=== PATIENT | male | born 2000 | race Caucasian/White ===

== ENCOUNTER 2021-11-01 14:04 | Inpatient (IN) | payer MEDICAID, OTHER ==
[~2021-11-01] VITALS: Ht 160 cm; Wt 82.2 kg
[2021-11-01] MEDS ORDERED: IBUP-1506 PO (14:06)
[2021-11-01 15:30] LABS: BASOPHILS % (AUTO) 0.6 % (0.0-2.0); EOSINOPHILS % (AUTO) 0.7 % (1.0-6.0); HEMOGLOBIN 15.5 g/dL (13.5-17.5); LYMPHOCYTES % (AUTO) 20.2 % (22.0-44.0); MEAN CORPUSCULAR HEMOGLOBIN 29.3 pg (26.0-34.0); MEAN CORPUSCULAR HGB CONC 34.5 G/dL (31.0-37.0); MEAN CORPUSCULAR VOLUME 85 fL (80-100); MONOCYTES # (AUTO) 0.4 K/uL (0.1-1.0); MONOCYTES % (AUTO) 8.8 % (2.0-9.0); NEUTROPHILS # (AUTO) 3.3 K/uL (1.8-7.7); NEUTROPHILS % (AUTO) 69.7 % (40.0-70.0); PLATELET COUNT (AUTO) 246 K/uL (150-450); RED CELL DISTRIBUTION WIDTH 13.3 % (11.5-14.5)
[2021-11-01 15:39] LABS: ANION GAP 12 mmol/L (8-16); CALCIUM, TOTAL 8.5 mg/dL (8.8-10.5); CARBON DIOXIDE 26 mmol/L (22-29); CHLORIDE 99 mmol/L (98-107); CREATININE 0.79 mg/dL (0.60-1.30); GLOMERULAR FILTR. RATE CALC > 60 mL/min (>60); GLUCOSE,RANDOM 103 mg/dL (70-110); POTASSIUM 3.6 mmol/L (3.5-5.1); SODIUM SERUM 137 mmol/L (136-145); UREA NITROGEN, BLOOD 13 mg/dL (7-18)
[2021-11-01 15:45] LABS: COVID AG,FIA SOURCE NASOPHARYNGEAL
[2021-11-01] MEDS ORDERED: MAGNESIUM HYDROXIDE SUSPENSION 30 ML UDCUP PO PRN (16:45)
[2021-11-01] MEDS ORDERED: ONDANSETRON HCL 4 MG/2 ML VIAL IVP PRN (16:45)
[2021-11-01 17:04] LABS: PROTHROMBIN TIME 10.9 SEC (9.4-11.6)
[2021-11-01] MEDS: DOCUSATE SODIUM 100 MG CAPSULE PO SCH (20:38)
[2021-11-01 21:30] VITALS: BP 111/63
[2021-11-02 04:23] VITALS: BP 115/70
[2021-11-02] MEDS ORDERED: BUPIVACAINE LIPOSOME/PF 1.3%-13.3MG/ML SUSPENSION 20 ML VIAL INJ ONE (07:30)
[2021-11-02] MEDS ORDERED: VANCOMYCIN HCL 1 GM/VIAL ONE ×2 (07:44→13:04)
[2021-11-02] MEDS ORDERED: MUPIROCIN CALCIUM 2% 22 GM OINTMENT ONE (07:44)
[2021-11-02] MEDS ORDERED: BUPIVACAINE HCL/PF 0.25% 30 ML VIAL ONE (07:44)
[2021-11-02] MEDS ORDERED: SODIUM CL IRRIG SOLN BAG 3,000 ML IRRIG ONE (07:45)
[2021-11-02] MEDS ORDERED: MICROFIBRILLAR COLLAGEN 1 GM PACKAGE TP ONE (07:45)
[2021-11-02] MEDS ORDERED: RINGERS SOLUTION,LACTATED 1,000 ML IV ONE ×2 (08:18→11:00)
[2021-11-02 08:35] VITALS: BP 116/72
[2021-11-02] MEDS: DOCUSATE SODIUM 100 MG CAPSULE PO SCH ×2 (09:00→20:38)
[2021-11-02] MEDS: FAMOTIDINE 20 MG TABLET PO SCH (09:00)
[2021-11-02] MEDS ORDERED: VANCOMYCIN HCL 500 MG/VIAL ONE ×2 (13:04→13:05)
[2021-11-02] MEDS ORDERED: SUGAMMADEX SODIUM 200 MG/2 ML VIAL IVP ONE (13:04)
[2021-11-02] MEDS ORDERED: ACETAMINOPHEN 1000 MG/ISO-OSM 100 ML IV ONE (13:06)
[2021-11-02] MEDS ORDERED: BUPIVACAINE LIPOSOME/PF 1.3%-13.3MG/ML SUSPENSION 10 ML VIAL INJ ONE (14:33)
[2021-11-02 16:30] VITALS: BP 120/75
[2021-11-02] MEDS: MORPHINE SULFATE 2 MG/ML SYRINGE IVP PRN ×2 (18:21→22:31)
[2021-11-02 20:33] VITALS: BP 135/78
[2021-11-02] MEDS: OxyCODONE HCL/ACETAMINOPHEN 5-325 MG TABLET PO PRN (20:38)
[2021-11-02] MEDS ORDERED: SODIUM CHLORIDE 0.9% 250 ML IV ONE (22:23)
[2021-11-02] MEDS: CeFAZolin 2 GM/DEXTROSE 50 ML IV SCH (22:37)
[2021-11-03 00:10] VITALS: BP 114/70
[2021-11-03] MEDS: MORPHINE SULFATE 2 MG/ML SYRINGE IVP PRN ×5 (00:31→21:01)
[2021-11-03 02:41] VITALS: BP 127/67
[2021-11-03] MEDS: OxyCODONE HCL/ACETAMINOPHEN 5-325 MG TABLET PO PRN ×3 (03:05→19:50)
[2021-11-03] MEDS ORDERED: FentaNYL CITRATE PF 100 MCG/2 ML VIAL IVP ONE (06:19)
[2021-11-03] MEDS ORDERED: HYDROmorphone 2 MG/ML VIAL IVP ONE (06:19)
[2021-11-03] MEDS ORDERED: MIDAZOLAM HCL 2 MG/2 ML VIAL IVP ONE (06:19)
[2021-11-03] MEDS: CeFAZolin 2 GM/DEXTROSE 50 ML IV SCH ×3 (06:28→22:29)
[2021-11-03] MEDS ORDERED: PROPOFOL 1% 20 ML VIAL IVP ONE (06:29)
[2021-11-03] MEDS ORDERED: METOPROLOL TARTRATE 5 MG/5 ML VIAL IVP ONE (06:29)
[2021-11-03] MEDS ORDERED: 0.9% SODIUM CHLORIDE 10 ML VIAL IVP ONE (06:29)
[2021-11-03] MEDS ORDERED: ROCURONIUM BROMIDE 10 MG/ML 5 ML VIAL IVP ONE (06:29)
[2021-11-03] MEDS ORDERED: LIDOCAINE/PF 2% 5 ML VIAL IM ONE (06:29)
[2021-11-03] MEDS ORDERED: KETOROLAC TROMETHAMINE 60 MG/2 ML VIAL IM ONE (06:29)
[2021-11-03] MEDS ORDERED: ONDANSETRON HCL 4 MG/2 ML VIAL IVP ONE (06:29)
[2021-11-03] MEDS ORDERED: DEXAMETHASONE SOD PHOS 4 MG/ML VIAL IVP ONE (06:29)
[2021-11-03] MEDS: DOCUSATE SODIUM 100 MG CAPSULE PO SCH ×2 (07:53→19:49)
[2021-11-03] MEDS: FAMOTIDINE 20 MG TABLET PO SCH (07:53)
[2021-11-03] MEDS: ENOXAPARIN SODIUM 40 MG/0.4 ML PF SYRINGE SQ SCH (07:54)
[2021-11-03 08:15] LABS: BASOPHILS % (AUTO) 0.2 % (0.0-2.0); EOSINOPHILS % (AUTO) 0.1 % (1.0-6.0); HEMATOCRIT 39.3 % (41-53); HEMOGLOBIN 13.9 g/dL (13.5-17.5); LYMPHOCYTES # (AUTO) 1.5 K/uL (1.0-4.8); LYMPHOCYTES % (AUTO) 18.2 % (22.0-44.0); MEAN CORPUSCULAR HEMOGLOBIN 29.7 pg (26.0-34.0); MEAN CORPUSCULAR HGB CONC 35.4 G/dL (31.0-37.0); MEAN CORPUSCULAR VOLUME 84 fL (80-100); MONOCYTES # (AUTO) 1.1 K/uL (0.1-1.0); MONOCYTES % (AUTO) 12.7 % (2.0-9.0); NEUTROPHILS # (AUTO) 5.8 K/uL (1.8-7.7); NEUTROPHILS % (AUTO) 68.8 % (40.0-70.0); PLATELET COUNT (AUTO) 236 K/uL (150-450); RED BLOOD CELL COUNT(AUTO) 4.69 MIL/uL (4.50-5.90); RED CELL DISTRIBUTION WIDTH 12.9 % (11.5-14.5)
[2021-11-03 08:21] VITALS: BP 123/57
[2021-11-03 08:30] LABS: ANION GAP 10 mmol/L (8-16); CALCIUM, TOTAL 8.4 mg/dL (8.8-10.5); CARBON DIOXIDE 24 mmol/L (22-29); CHLORIDE 102 mmol/L (98-107); CREATININE 0.66 mg/dL (0.60-1.30); GLOMERULAR FILTR. RATE CALC > 60 mL/min (>60); GLUCOSE,RANDOM 117 mg/dL (70-110); POTASSIUM 3.6 mmol/L (3.5-5.1); SODIUM SERUM 136 mmol/L (136-145); UREA NITROGEN, BLOOD 8 mg/dL (7-18)
[2021-11-03] MEDS ORDERED: SODIUM CHLORIDE 0.9% 500 ML IV ONE (14:11)
[2021-11-03] MEDS: SODIUM CHLORIDE 0.9% 500 ML IV SCH ×2 (14:16→19:57)
[2021-11-03 15:19] VITALS: BP 131/82
[2021-11-03] MEDS: ACETAMINOPHEN 325 MG TABLET PO PRN (15:50)
[2021-11-03 18:23] LABS: APPEARANCE,URINE CLEAR (CLEAR); BILIRUBIN,URINE NEGATIVE (NEGATIVE); GLUCOSE, URINE (UA) NEGATIVE (NEGATIVE); KETONES,URINE NEGATIVE (NEGATIVE); LEUKOCYTE ESTERASE ,URINE NEGATIVE (NEGATIVE); NITRATE,URINE NEGATIVE (NEGATIVE); OCCULT BLOOD,URINE NEGATIVE (NEGATIVE); PROTEIN,URINE NEGATIVE (NEGATIVE); SPECIFIC GRAVITIY, URINE 1.006 (1.003-1.030); UROBILINOGEN,URINE <=1.0 mg/dL (<=1.0)
[2021-11-03 19:29] VITALS: BP 141/80
[2021-11-04] MEDS: SODIUM CHLORIDE 0.9% 500 ML IV SCH ×5 (00:43→20:11)
[2021-11-04] MEDS: MORPHINE SULFATE 2 MG/ML SYRINGE IVP PRN ×5 (01:01→21:05)
[2021-11-04 04:47] VITALS: BP 136/81
[2021-11-04] MEDS: CeFAZolin 2 GM/DEXTROSE 50 ML IV SCH ×2 (06:05→14:50)
[2021-11-04 07:04] LABS: BASOPHILS % (AUTO) 0.4 % (0.0-2.0); EOSINOPHILS % (AUTO) 0.2 % (1.0-6.0); HEMATOCRIT 40.5 % (41-53); HEMOGLOBIN 14.2 g/dL (13.5-17.5); LYMPHOCYTES # (AUTO) 1.6 K/uL (1.0-4.8); LYMPHOCYTES % (AUTO) 18.7 % (22.0-44.0); MEAN CORPUSCULAR HEMOGLOBIN 29.5 pg (26.0-34.0); MEAN CORPUSCULAR HGB CONC 35.1 G/dL (31.0-37.0); MEAN CORPUSCULAR VOLUME 84 fL (80-100); MONOCYTES # (AUTO) 1.5 K/uL (0.1-1.0); NEUTROPHILS # (AUTO) 5.5 K/uL (1.8-7.7); NEUTROPHILS % (AUTO) 63.7 % (40.0-70.0); PLATELET COUNT (AUTO) 226 K/uL (150-450); RED BLOOD CELL COUNT(AUTO) 4.81 MIL/uL (4.50-5.90); RED CELL DISTRIBUTION WIDTH 13.2 % (11.5-14.5)
[2021-11-04 07:37] LABS: ANION GAP 6 mmol/L (8-16); CALCIUM, TOTAL 8.2 mg/dL (8.8-10.5); CARBON DIOXIDE 25 mmol/L (22-29); CHLORIDE 100 mmol/L (98-107); CREATININE 0.61 mg/dL (0.60-1.30); GLOMERULAR FILTR. RATE CALC > 60 mL/min (>60); GLUCOSE,RANDOM 121 mg/dL (70-110); POTASSIUM 3.5 mmol/L (3.5-5.1); SODIUM SERUM 131 mmol/L (136-145); UREA NITROGEN, BLOOD 6 mg/dL (7-18)
[2021-11-04 08:38] VITALS: BP 135/82
[2021-11-04] MEDS: FAMOTIDINE 20 MG TABLET PO SCH (10:18)
[2021-11-04] MEDS: OxyCODONE HCL/ACETAMINOPHEN 5-325 MG TABLET PO PRN (10:18)
[2021-11-04] MEDS: DOCUSATE SODIUM 100 MG CAPSULE PO SCH ×2 (10:18→20:11)
[2021-11-04] MEDS: ENOXAPARIN SODIUM 40 MG/0.4 ML PF SYRINGE SQ SCH (10:19)
[2021-11-04 16:07] VITALS: BP 136/93
[2021-11-04 19:34] VITALS: BP 128/84
[2021-11-05] MEDS: SODIUM CHLORIDE 0.9% 500 ML IV SCH ×3 (01:15→11:15)
[2021-11-05 05:29] VITALS: BP 110/67
[2021-11-05] MEDS: OxyCODONE HCL/ACETAMINOPHEN 5-325 MG TABLET PO PRN (05:52)
[2021-11-05 08:00] VITALS: BP 121/75
[2021-11-05] MEDS: MORPHINE SULFATE 2 MG/ML SYRINGE IVP PRN ×4 (09:06→21:57)
[2021-11-05] MEDS: ENOXAPARIN SODIUM 40 MG/0.4 ML PF SYRINGE SQ SCH (09:06)
[2021-11-05] MEDS: DOCUSATE SODIUM 100 MG CAPSULE PO SCH ×2 (09:06→21:00)
[2021-11-05] MEDS: FAMOTIDINE 20 MG TABLET PO SCH (09:06)
[2021-11-05 16:36] VITALS: BP 128/83
[2021-11-05 19:22] VITALS: BP 129/81
[2021-11-06] MEDS: SODIUM CHLORIDE 0.9% 500 ML IV SCH ×4 (00:36→18:37)
[2021-11-06] MEDS: MORPHINE SULFATE 2 MG/ML SYRINGE IVP PRN ×3 (02:00→21:31)
[2021-11-06] MEDS: OxyCODONE HCL/ACETAMINOPHEN 5-325 MG TABLET PO PRN ×3 (03:25→23:59)
[2021-11-06 04:16] VITALS: BP 112/69
[2021-11-06] MEDS: FAMOTIDINE 20 MG TABLET PO SCH (08:28)
[2021-11-06] MEDS: DOCUSATE SODIUM 100 MG CAPSULE PO SCH ×2 (08:28→21:30)
[2021-11-06] MEDS: ENOXAPARIN SODIUM 40 MG/0.4 ML PF SYRINGE SQ SCH (08:28)
[2021-11-06 09:41] VITALS: BP 121/79
[2021-11-06 11:33] LABS: EOSINOPHILS % (AUTO) 4.5 % (1.0-6.0); HEMATOCRIT 37.2 % (41-53); HEMOGLOBIN 13.1 g/dL (13.5-17.5); LYMPHOCYTES # (AUTO) 1.6 K/uL (1.0-4.8); LYMPHOCYTES % (AUTO) 30.9 % (22.0-44.0); MEAN CORPUSCULAR HEMOGLOBIN 29.4 pg (26.0-34.0); MEAN CORPUSCULAR HGB CONC 35.1 G/dL (31.0-37.0); MEAN CORPUSCULAR VOLUME 84 fL (80-100); MONOCYTES # (AUTO) 0.5 K/uL (0.1-1.0); MONOCYTES % (AUTO) 10.7 % (2.0-9.0); NEUTROPHILS # (AUTO) 2.7 K/uL (1.8-7.7); NEUTROPHILS % (AUTO) 52.9 % (40.0-70.0); PLATELET COUNT (AUTO) 298 K/uL (150-450); RED BLOOD CELL COUNT(AUTO) 4.44 MIL/uL (4.50-5.90)
[2021-11-06] MEDS: CeFAZolin 1 GM/DEXTROSE 50 ML IV SCH ×2 (11:39→18:44)
[2021-11-06 12:30] LABS: ERYTHROCYTE SEDIMENTATION RATE 96 MM/HR (0-15)
[2021-11-06 16:15] VITALS: BP 114/66
[2021-11-06 20:31] VITALS: BP 138/81
[2021-11-07] MEDS: SODIUM CHLORIDE 0.9% 500 ML IV SCH ×2 (01:37→09:06)
[2021-11-07] MEDS: MORPHINE SULFATE 2 MG/ML SYRINGE IVP PRN (01:37)
[2021-11-07] MEDS: CeFAZolin 1 GM/DEXTROSE 50 ML IV SCH ×3 (02:07→17:57)
[2021-11-07 04:16] VITALS: BP 114/70
[2021-11-07] MEDS ORDERED: SODIUM CHLORIDE 0.9% IRRIG ONE (05:27)
[2021-11-07] MEDS ORDERED: MUPIROCIN CALCIUM 2% 22 GM OINTMENT TP ONE (06:15)
[2021-11-07 08:03] VITALS: BP 132/82
[2021-11-07] MEDS: DOCUSATE SODIUM 100 MG CAPSULE PO SCH ×2 (09:04→20:34)
[2021-11-07] MEDS: FAMOTIDINE 20 MG TABLET PO SCH (09:04)
[2021-11-07] MEDS: ENOXAPARIN SODIUM 40 MG/0.4 ML PF SYRINGE SQ SCH (09:04)
[2021-11-07] MEDS: OxyCODONE HCL/ACETAMINOPHEN 5-325 MG TABLET PO PRN ×2 (10:39→21:24)
[2021-11-07 15:40] VITALS: BP 120/70
[2021-11-07 15:57] LABS: EOSINOPHILS % (AUTO) 4.2 % (1.0-6.0); HEMATOCRIT 37.7 % (41-53); HEMOGLOBIN 13.1 g/dL (13.5-17.5); LYMPHOCYTES # (AUTO) 1.3 K/uL (1.0-4.8); LYMPHOCYTES % (AUTO) 28.9 % (22.0-44.0); MEAN CORPUSCULAR HEMOGLOBIN 29.2 pg (26.0-34.0); MEAN CORPUSCULAR HGB CONC 34.7 G/dL (31.0-37.0); MEAN CORPUSCULAR VOLUME 84 fL (80-100); MONOCYTES # (AUTO) 0.6 K/uL (0.1-1.0); MONOCYTES % (AUTO) 13.8 % (2.0-9.0); NEUTROPHILS # (AUTO) 2.4 K/uL (1.8-7.7); NEUTROPHILS % (AUTO) 52.1 % (40.0-70.0); PLATELET COUNT (AUTO) 354 K/uL (150-450); RED BLOOD CELL COUNT(AUTO) 4.47 MIL/uL (4.50-5.90); RED CELL DISTRIBUTION WIDTH 12.8 % (11.5-14.5)
[2021-11-07 16:05] LABS: ANION GAP 10 mmol/L (8-16); CALCIUM, TOTAL 8.3 mg/dL (8.8-10.5); CARBON DIOXIDE 25 mmol/L (22-29); CHLORIDE 98 mmol/L (98-107); CREATININE 0.59 mg/dL (0.60-1.30); GLUCOSE,RANDOM 124 mg/dL (70-110); POTASSIUM 4.1 mmol/L (3.5-5.1); SODIUM SERUM 133 mmol/L (136-145); UREA NITROGEN, BLOOD 9 mg/dL (7-18)
[2021-11-07 16:07] LABS: GLOMERULAR FILTR. RATE CALC > 60 mL/min (>60)
[2021-11-07] MEDS ORDERED: SODIUM CHLORIDE 0.9% 1,000 ML ONE (17:50)
[2021-11-07] MEDS: SODIUM CHLORIDE 0.9% 1,000 ML IV SCH (17:57)
[2021-11-07 20:00] VITALS: BP 129/89
[2021-11-08 00:41] VITALS: BP 119/82
[2021-11-08] MEDS: MORPHINE SULFATE 2 MG/ML SYRINGE IVP PRN ×3 (00:41→20:16)
[2021-11-08] MEDS: CeFAZolin 1 GM/DEXTROSE 50 ML IV SCH ×3 (01:45→17:47)
[2021-11-08 04:18] VITALS: BP 129/80
[2021-11-08 06:31] LABS: BASOPHILS % (AUTO) 0.9 % (0.0-2.0); EOSINOPHILS % (AUTO) 4.4 % (1.0-6.0); HEMATOCRIT 38.5 % (41-53); HEMOGLOBIN 13.2 g/dL (13.5-17.5); LYMPHOCYTES # (AUTO) 1.8 K/uL (1.0-4.8); LYMPHOCYTES % (AUTO) 30.6 % (22.0-44.0); MEAN CORPUSCULAR HEMOGLOBIN 28.8 pg (26.0-34.0); MEAN CORPUSCULAR HGB CONC 34.2 G/dL (31.0-37.0); MEAN CORPUSCULAR VOLUME 84 fL (80-100); MONOCYTES # (AUTO) 0.7 K/uL (0.1-1.0); MONOCYTES % (AUTO) 12.1 % (2.0-9.0); PLATELET COUNT (AUTO) 385 K/uL (150-450); RED BLOOD CELL COUNT(AUTO) 4.58 MIL/uL (4.50-5.90); RED CELL DISTRIBUTION WIDTH 12.6 % (11.5-14.5)
[2021-11-08 06:41] LABS: ANION GAP 8 mmol/L (8-16); CALCIUM, TOTAL 8.9 mg/dL (8.8-10.5); CARBON DIOXIDE 26 mmol/L (22-29); CHLORIDE 100 mmol/L (98-107); CREATININE 0.56 mg/dL (0.60-1.30); GLUCOSE,RANDOM 102 mg/dL (70-110); POTASSIUM 3.6 mmol/L (3.5-5.1); SODIUM SERUM 134 mmol/L (136-145); UREA NITROGEN, BLOOD 5 mg/dL (7-18)
[2021-11-08 06:45] LABS: GLOMERULAR FILTR. RATE CALC > 60 mL/min (>60)
[2021-11-08 08:36] VITALS: BP 135/81
[2021-11-08] MEDS: DOCUSATE SODIUM 100 MG CAPSULE PO SCH ×2 (09:00→20:21)
[2021-11-08] MEDS: FAMOTIDINE 20 MG TABLET PO SCH (10:09)
[2021-11-08] MEDS: ENOXAPARIN SODIUM 40 MG/0.4 ML PF SYRINGE SQ SCH (10:09)
[2021-11-08 15:55] VITALS: BP 140/92
[2021-11-08] MEDS: SODIUM CHLORIDE 0.9% 1,000 ML IV SCH (16:04)
[2021-11-08] MEDS ORDERED: BACITRACIN 28 GM OINTMENT TP PRN (17:30)
[2021-11-08 19:50] VITALS: BP 124/78
[2021-11-09] MEDS: CeFAZolin 1 GM/DEXTROSE 50 ML IV SCH ×3 (01:59→18:07)
[2021-11-09 05:15] VITALS: BP 114/70
[2021-11-09 08:19] VITALS: BP 129/74
[2021-11-09] MEDS: FAMOTIDINE 20 MG TABLET PO SCH (09:00)
[2021-11-09] MEDS: DOCUSATE SODIUM 100 MG CAPSULE PO SCH ×2 (09:00→21:00)
[2021-11-09 09:12] VITALS: BP 111/77
[2021-11-09] MEDS: OxyCODONE HCL/ACETAMINOPHEN 5-325 MG TABLET PO PRN (09:33)
[2021-11-09] MEDS: ENOXAPARIN SODIUM 40 MG/0.4 ML PF SYRINGE SQ SCH (09:34)
[2021-11-09] MEDS: SODIUM CHLORIDE 0.9% 1,000 ML IV SCH (09:52)
[2021-11-09] MEDS: MORPHINE SULFATE 2 MG/ML SYRINGE IVP PRN ×3 (12:52→23:12)
[2021-11-09 16:25] VITALS: BP 121/75
[2021-11-09 19:30] VITALS: BP 140/80
[2021-11-10] MEDS: CeFAZolin 1 GM/DEXTROSE 50 ML IV SCH ×2 (01:19→09:55)
[2021-11-10] MEDS: MORPHINE SULFATE 2 MG/ML SYRINGE IVP PRN ×3 (03:33→22:31)
[2021-11-10 04:00] VITALS: BP 117/78
[2021-11-10] MEDS: SODIUM CHLORIDE 0.9% 1,000 ML IV SCH (06:31)
[2021-11-10 07:19] LABS: BASOPHILS % (AUTO) 0.6 % (0.0-2.0); EOSINOPHILS % (AUTO) 3.8 % (1.0-6.0); HEMATOCRIT 37.1 % (41-53); HEMOGLOBIN 13.1 g/dL (13.5-17.5); LYMPHOCYTES # (AUTO) 2.7 K/uL (1.0-4.8); LYMPHOCYTES % (AUTO) 41.3 % (22.0-44.0); MEAN CORPUSCULAR HEMOGLOBIN 29.8 pg (26.0-34.0); MEAN CORPUSCULAR HGB CONC 35.3 G/dL (31.0-37.0); MEAN CORPUSCULAR VOLUME 84 fL (80-100); MONOCYTES # (AUTO) 0.7 K/uL (0.1-1.0); MONOCYTES % (AUTO) 10.5 % (2.0-9.0); NEUTROPHILS # (AUTO) 2.9 K/uL (1.8-7.7); NEUTROPHILS % (AUTO) 43.8 % (40.0-70.0); PLATELET COUNT (AUTO) 415 K/uL (150-450); RED BLOOD CELL COUNT(AUTO) 4.41 MIL/uL (4.50-5.90); RED CELL DISTRIBUTION WIDTH 12.8 % (11.5-14.5)
[2021-11-10 07:38] LABS: ALANINE AMINOTRANSFERASE 44 U/L (12-78); ALBUMIN 3.4 g/dL (3.4-5.0); ALKALINE PHOSPHATASE 76 U/L (46-116); ANION GAP 8 mmol/L (8-16); ASPARTATE AMINOTRANSFERASE 24 U/L (15-37); BILIRUBIN,TOTAL 0.4 mg/dL (0.1-1.0); CARBON DIOXIDE 28 mmol/L (22-29); CHLORIDE 103 mmol/L (98-107); CREATININE 0.56 mg/dL (0.60-1.30); GLOMERULAR FILTR. RATE CALC > 60 mL/min (>60); GLUCOSE,RANDOM 101 mg/dL (70-110); SODIUM SERUM 139 mmol/L (136-145); TOTAL PROTEIN, SERUM 7.3 g/dL (6.4-8.2); UREA NITROGEN, BLOOD 8 mg/dL (7-18)
[2021-11-10 08:00] VITALS: BP 144/77
[2021-11-10] MEDS: ENOXAPARIN SODIUM 40 MG/0.4 ML PF SYRINGE SQ SCH (08:55)
[2021-11-10] MEDS: FAMOTIDINE 20 MG TABLET PO SCH (08:57)
[2021-11-10] MEDS: DOCUSATE SODIUM 100 MG CAPSULE PO SCH ×2 (08:58→22:31)
[2021-11-10] MEDS ORDERED: SODIUM CHLORIDE 0.9% 250 ML IV ONE (09:50)
[2021-11-10] MEDS: OxyCODONE HCL/ACETAMINOPHEN 5-325 MG TABLET PO PRN ×2 (12:54→19:03)
[2021-11-10 16:00] VITALS: BP 127/78
[2021-11-10 19:45] VITALS: BP 133/77
[2021-11-11] MEDS: SODIUM CHLORIDE 0.9% 1,000 ML IV SCH ×2 (01:45→21:45)
[2021-11-11] MEDS: OxyCODONE HCL/ACETAMINOPHEN 5-325 MG TABLET PO PRN ×4 (03:02→20:05)
[2021-11-11 04:20] VITALS: BP 145/74
[2021-11-11 08:00] VITALS: BP 135/91
[2021-11-11] MEDS: FAMOTIDINE 20 MG TABLET PO SCH (08:58)
[2021-11-11] MEDS: DOCUSATE SODIUM 100 MG CAPSULE PO SCH ×2 (08:58→20:05)
[2021-11-11] MEDS: ENOXAPARIN SODIUM 40 MG/0.4 ML PF SYRINGE SQ SCH (08:58)
[2021-11-11] MEDS: MUPIROCIN CALCIUM 2% 22 GM OINTMENT TP SCH ×2 (10:40→21:09)
[2021-11-11 10:55] LABS: BASOPHILS % (AUTO) 0.2 % (0.0-2.0); EOSINOPHILS % (AUTO) 3.3 % (1.0-6.0); HEMATOCRIT 41.7 % (41-53); HEMOGLOBIN 14.3 g/dL (13.5-17.5); LYMPHOCYTES # (AUTO) 2.8 K/uL (1.0-4.8); MEAN CORPUSCULAR HEMOGLOBIN 29.1 pg (26.0-34.0); MEAN CORPUSCULAR HGB CONC 34.2 G/dL (31.0-37.0); MEAN CORPUSCULAR VOLUME 85 fL (80-100); MONOCYTES # (AUTO) 0.8 K/uL (0.1-1.0); MONOCYTES % (AUTO) 10.4 % (2.0-9.0); NEUTROPHILS # (AUTO) 4.1 K/uL (1.8-7.7); NEUTROPHILS % (AUTO) 51.1 % (40.0-70.0); PLATELET COUNT (AUTO) 485 K/uL (150-450); RED CELL DISTRIBUTION WIDTH 12.7 % (11.5-14.5)
[2021-11-11 11:08] LABS: ANION GAP 8 mmol/L (8-16); CALCIUM, TOTAL 8.9 mg/dL (8.8-10.5); CARBON DIOXIDE 27 mmol/L (22-29); CHLORIDE 101 mmol/L (98-107); GLOMERULAR FILTR. RATE CALC > 60 mL/min (>60); GLUCOSE,RANDOM 105 mg/dL (70-110); POTASSIUM 4.2 mmol/L (3.5-5.1); SODIUM SERUM 136 mmol/L (136-145); UREA NITROGEN, BLOOD 7 mg/dL (7-18)
[2021-11-11 11:14] LABS: ALANINE AMINOTRANSFERASE 41 U/L (12-78); ALBUMIN 3.7 g/dL (3.4-5.0); ALKALINE PHOSPHATASE 80 U/L (46-116); ASPARTATE AMINOTRANSFERASE 22 U/L (15-37); BILIRUBIN,TOTAL 0.3 mg/dL (0.1-1.0); C-REACTIVE PROTEIN QUANT 2.61 mg/dL (0.00-0.30); TOTAL PROTEIN, SERUM 7.8 g/dL (6.4-8.2)
[2021-11-11] MEDS: MORPHINE SULFATE 2 MG/ML SYRINGE IVP PRN (11:30)
[2021-11-11 11:53] LABS: ERYTHROCYTE SEDIMENTATION RATE 38 MM/HR (0-15)
[2021-11-11] MEDS ORDERED: CeFAZolin 1 GM/DEXTROSE 50 ML IV SCH (12:00)
[2021-11-11] MEDS ORDERED: VANCOMYCIN HCL 1.5 GM in DEXTROSE 5%-WATER 250 ML IV ONE (13:30)
[2021-11-11] MEDS: CefTAZidime PENTAHYDRATE 2 GM in DEXTROSE 5%-WATER 50 ML IV SCH ×2 (14:07→21:09)
[2021-11-11 16:00] VITALS: BP 124/78
[2021-11-11] MEDS ORDERED: DiphenhydrAMINE HCL 50 MG CAPSULE PO PRN (17:45)
[2021-11-11 20:13] VITALS: BP 132/80
[2021-11-12] MEDS ORDERED: VANCOMYCIN HCL 1.25 GM in DEXTROSE 5%-WATER 250 ML IV SCH ×2
[2021-11-12] MEDS ORDERED: VANCOMYCIN 1GM/WATER(PEG/NADA) 200 ML IV SCH
[2021-11-12] MEDS: MORPHINE SULFATE 2 MG/ML SYRINGE IVP PRN ×2 (00:12→22:53)
[2021-11-12] MEDS: DAPTOMYCIN 500 MG in SODIUM CHLORIDE 0.9% 50 ML IV SCH (00:12)
[2021-11-12] MEDS: OxyCODONE HCL/ACETAMINOPHEN 5-325 MG TABLET PO PRN ×4 (03:33→20:39)
[2021-11-12 03:55] VITALS: BP 125/80
[2021-11-12] MEDS: CefTAZidime PENTAHYDRATE 2 GM in DEXTROSE 5%-WATER 50 ML IV SCH ×3 (05:41→20:39)
[2021-11-12] MEDS: ENOXAPARIN SODIUM 40 MG/0.4 ML PF SYRINGE SQ SCH (08:03)
[2021-11-12] MEDS: MUPIROCIN CALCIUM 2% 22 GM OINTMENT TP SCH (08:04)
[2021-11-12] MEDS: FAMOTIDINE 20 MG TABLET PO SCH (08:04)
[2021-11-12] MEDS: DOCUSATE SODIUM 100 MG CAPSULE PO SCH ×2 (08:04→20:39)
[2021-11-12 08:51] LABS: ALANINE AMINOTRANSFERASE 38 U/L (12-78); ALBUMIN 3.6 g/dL (3.4-5.0); ALKALINE PHOSPHATASE 79 U/L (46-116); ANION GAP 11 mmol/L (8-16); ASPARTATE AMINOTRANSFERASE 20 U/L (15-37); BILIRUBIN,TOTAL 0.3 mg/dL (0.1-1.0); CALCIUM, TOTAL 9.1 mg/dL (8.8-10.5); CARBON DIOXIDE 23 mmol/L (22-29); CHLORIDE 102 mmol/L (98-107); CREATININE 0.59 mg/dL (0.60-1.30); GLUCOSE,RANDOM 91 mg/dL (70-110); POTASSIUM 4.1 mmol/L (3.5-5.1); SODIUM SERUM 136 mmol/L (136-145); TOTAL PROTEIN, SERUM 7.5 g/dL (6.4-8.2); UREA NITROGEN, BLOOD 6 mg/dL (7-18)
[2021-11-12 08:53] LABS: GLOMERULAR FILTR. RATE CALC > 60 mL/min (>60)
[2021-11-12 09:44] VITALS: BP 134/83
[2021-11-12] MEDS: COLLAGENASE 250 UNITS/GM 30 GM OINTMENT TP SCH (11:41)
[2021-11-12 12:09] LABS: C-REACTIVE PROTEIN QUANT 2.24 mg/dL (0.00-0.30)
[2021-11-12 13:41] LABS: BASOPHILS % (AUTO) 0.8 % (0.0-2.0); EOSINOPHILS % (AUTO) 3.5 % (1.0-6.0); HEMATOCRIT 39.2 % (41-53); HEMOGLOBIN 13.8 g/dL (13.5-17.5); LYMPHOCYTES # (AUTO) 2.1 K/uL (1.0-4.8); LYMPHOCYTES % (AUTO) 40.4 % (22.0-44.0); MEAN CORPUSCULAR HEMOGLOBIN 29.5 pg (26.0-34.0); MEAN CORPUSCULAR HGB CONC 35.2 G/dL (31.0-37.0); MEAN CORPUSCULAR VOLUME 84 fL (80-100); MONOCYTES # (AUTO) 0.5 K/uL (0.1-1.0); MONOCYTES % (AUTO) 9.4 % (2.0-9.0); NEUTROPHILS # (AUTO) 2.4 K/uL (1.8-7.7); NEUTROPHILS % (AUTO) 45.9 % (40.0-70.0); PLATELET COUNT (AUTO) 497 K/uL (150-450); RED BLOOD CELL COUNT(AUTO) 4.69 MIL/uL (4.50-5.90); RED CELL DISTRIBUTION WIDTH 12.6 % (11.5-14.5)
[2021-11-12 15:20] LABS: ERYTHROCYTE SEDIMENTATION RATE 34 MM/HR (0-15)
[2021-11-12] MEDS: SODIUM CHLORIDE 0.9% 1,000 ML IV SCH (18:30)
[2021-11-12 20:19] VITALS: BP 141/93
[2021-11-13] MEDS: DAPTOMYCIN 500 MG in SODIUM CHLORIDE 0.9% 50 ML IV SCH (00:22)
[2021-11-13] MEDS: OxyCODONE HCL/ACETAMINOPHEN 5-325 MG TABLET PO PRN ×2 (03:16→21:14)
[2021-11-13 04:24] VITALS: BP 127/80
[2021-11-13] MEDS: CefTAZidime PENTAHYDRATE 2 GM in DEXTROSE 5%-WATER 50 ML IV SCH ×3 (05:30→21:10)
[2021-11-13 08:15] VITALS: BP 124/82
[2021-11-13] MEDS: DOCUSATE SODIUM 100 MG CAPSULE PO SCH ×2 (09:00→21:00)
[2021-11-13 10:10] LABS: ANION GAP 11 mmol/L (8-16); CALCIUM, TOTAL 9.3 mg/dL (8.8-10.5); CARBON DIOXIDE 26 mmol/L (22-29); CHLORIDE 100 mmol/L (98-107); CREATININE 0.66 mg/dL (0.60-1.30); GLOMERULAR FILTR. RATE CALC > 60 mL/min (>60); GLUCOSE,RANDOM 134 mg/dL (70-110); POTASSIUM 3.7 mmol/L (3.5-5.1); SODIUM SERUM 137 mmol/L (136-145); UREA NITROGEN, BLOOD 6 mg/dL (7-18); VANCOMYCIN,RANDOM 0.9 mcg/mL (25.0-50.0)
[2021-11-13] MEDS: FAMOTIDINE 20 MG TABLET PO SCH (10:21)
[2021-11-13] MEDS: COLLAGENASE 250 UNITS/GM 30 GM OINTMENT TP SCH (10:24)
[2021-11-13] MEDS: MORPHINE SULFATE 2 MG/ML SYRINGE IVP PRN ×3 (12:13→23:13)
[2021-11-13] MEDS: SODIUM CHLORIDE 0.9% 1,000 ML IV SCH (14:38)
[2021-11-13 16:08] VITALS: BP 129/81
[2021-11-13 19:30] VITALS: BP 129/84
[2021-11-13] MEDS: MELATONIN 3 MG TABLET PO PRN (20:06)
[2021-11-14] MEDS: OxyCODONE HCL/ACETAMINOPHEN 5-325 MG TABLET PO PRN ×4 (02:08→20:28)
[2021-11-14 04:30] VITALS: BP 136/86
[2021-11-14] MEDS: CefTAZidime PENTAHYDRATE 2 GM in DEXTROSE 5%-WATER 50 ML IV SCH ×3 (04:32→20:29)
[2021-11-14] MEDS: MORPHINE SULFATE 2 MG/ML SYRINGE IVP PRN ×2 (04:35→22:42)
[2021-11-14 07:43] LABS: BASOPHILS % (AUTO) 0.6 % (0.0-2.0); EOSINOPHILS % (AUTO) 4.4 % (1.0-6.0); HEMATOCRIT 41.2 % (41-53); LYMPHOCYTES # (AUTO) 2.9 K/uL (1.0-4.8); LYMPHOCYTES % (AUTO) 46.9 % (22.0-44.0); MEAN CORPUSCULAR HEMOGLOBIN 28.8 pg (26.0-34.0); MEAN CORPUSCULAR HGB CONC 34.1 G/dL (31.0-37.0); MEAN CORPUSCULAR VOLUME 85 fL (80-100); MONOCYTES # (AUTO) 0.6 K/uL (0.1-1.0); NEUTROPHILS # (AUTO) 2.4 K/uL (1.8-7.7); NEUTROPHILS % (AUTO) 39.1 % (40.0-70.0); PLATELET COUNT (AUTO) 528 K/uL (150-450); RED BLOOD CELL COUNT(AUTO) 4.87 MIL/uL (4.50-5.90); RED CELL DISTRIBUTION WIDTH 12.7 % (11.5-14.5)
[2021-11-14 08:04] LABS: ALANINE AMINOTRANSFERASE 58 U/L (12-78); ALBUMIN 3.8 g/dL (3.4-5.0); ALKALINE PHOSPHATASE 84 U/L (46-116); ANION GAP 5 mmol/L (8-16); ASPARTATE AMINOTRANSFERASE 37 U/L (15-37); BILIRUBIN,TOTAL 0.4 mg/dL (0.1-1.0); CARBON DIOXIDE 27 mmol/L (22-29); CHLORIDE 100 mmol/L (98-107); CREATININE 0.62 mg/dL (0.60-1.30); GLOMERULAR FILTR. RATE CALC > 60 mL/min (>60); GLUCOSE,RANDOM 91 mg/dL (70-110); POTASSIUM 3.8 mmol/L (3.5-5.1); SODIUM SERUM 132 mmol/L (136-145); TOTAL PROTEIN, SERUM 7.6 g/dL (6.4-8.2); UREA NITROGEN, BLOOD 8 mg/dL (7-18)
[2021-11-14 08:31] VITALS: BP 140/89
[2021-11-14] MEDS: DOCUSATE SODIUM 100 MG CAPSULE PO SCH ×2 (09:00→20:29)
[2021-11-14] MEDS: COLLAGENASE 250 UNITS/GM 30 GM OINTMENT TP SCH (10:26)
[2021-11-14] MEDS: FAMOTIDINE 20 MG TABLET PO SCH (10:26)
[2021-11-14 15:33] VITALS: BP 117/70
[2021-11-14] MEDS ORDERED: SODIUM CHLORIDE 0.9% 1,000 ML ONE (17:19)
[2021-11-14 18:38] VITALS: BP 115/51
[2021-11-14] MEDS: MELATONIN 3 MG TABLET PO PRN (20:28)
[2021-11-15] MEDS: OxyCODONE HCL/ACETAMINOPHEN 5-325 MG TABLET PO PRN ×3 (00:31→19:58)
[2021-11-15] MEDS: CefTAZidime PENTAHYDRATE 2 GM in DEXTROSE 5%-WATER 50 ML IV SCH ×3 (04:05→19:59)
[2021-11-15 05:44] VITALS: BP 136/82
[2021-11-15] MEDS: MORPHINE SULFATE 2 MG/ML SYRINGE IVP PRN ×2 (06:08→12:39)
[2021-11-15] MEDS: FAMOTIDINE 20 MG TABLET PO SCH (08:27)
[2021-11-15] MEDS: MULTIVITAMINS WITH MINERALS, THERAPEUTIC TABLET PO SCH (08:27)
[2021-11-15] MEDS: DOCUSATE SODIUM 100 MG CAPSULE PO SCH ×3 (08:27→21:00)
[2021-11-15 08:46] VITALS: BP 120/84
[2021-11-15] MEDS: COLLAGENASE 250 UNITS/GM 30 GM OINTMENT TP SCH (10:45)
[2021-11-15 15:44] VITALS: BP 136/78
[2021-11-15 19:23] VITALS: BP 142/84
[2021-11-15] MEDS: MELATONIN 3 MG TABLET PO PRN (19:59)
[2021-11-16] MEDS: MORPHINE SULFATE 2 MG/ML SYRINGE IVP PRN ×2 (00:05→05:04)
[2021-11-16] MEDS: CefTAZidime PENTAHYDRATE 2 GM in DEXTROSE 5%-WATER 50 ML IV SCH ×3 (04:59→20:06)
[2021-11-16 05:16] VITALS: BP 138/71
[2021-11-16 07:33] VITALS: BP 134/72
[2021-11-16] MEDS: DOCUSATE SODIUM 100 MG CAPSULE PO SCH ×2 (09:00→20:04)
[2021-11-16] MEDS: FAMOTIDINE 20 MG TABLET PO SCH (09:33)
[2021-11-16] MEDS: MULTIVITAMINS WITH MINERALS, THERAPEUTIC TABLET PO SCH (09:33)
[2021-11-16] MEDS: COLLAGENASE 250 UNITS/GM 30 GM OINTMENT TP SCH (09:35)
[2021-11-16] MEDS: OxyCODONE HCL/ACETAMINOPHEN 5-325 MG TABLET PO PRN ×2 (14:26→20:07)
[2021-11-16 15:13] VITALS: BP 130/74
[2021-11-16 19:33] VITALS: BP 130/83
[2021-11-16] MEDS: MELATONIN 3 MG TABLET PO PRN (20:07)
[2021-11-17 04:55] VITALS: BP 130/87
[2021-11-17] MEDS: CefTAZidime PENTAHYDRATE 2 GM in DEXTROSE 5%-WATER 50 ML IV SCH ×3 (05:01→20:25)
[2021-11-17 06:44] LABS: EOSINOPHILS % (AUTO) 4.3 % (1.0-6.0); HEMATOCRIT 41.7 % (41-53); HEMOGLOBIN 14.7 g/dL (13.5-17.5); LYMPHOCYTES # (AUTO) 2.4 K/uL (1.0-4.8); LYMPHOCYTES % (AUTO) 38.5 % (22.0-44.0); MEAN CORPUSCULAR HEMOGLOBIN 29.3 pg (26.0-34.0); MEAN CORPUSCULAR HGB CONC 35.2 G/dL (31.0-37.0); MEAN CORPUSCULAR VOLUME 83 fL (80-100); MONOCYTES # (AUTO) 0.7 K/uL (0.1-1.0); MONOCYTES % (AUTO) 10.9 % (2.0-9.0); NEUTROPHILS # (AUTO) 2.9 K/uL (1.8-7.7); NEUTROPHILS % (AUTO) 45.3 % (40.0-70.0); PLATELET COUNT (AUTO) 509 K/uL (150-450); RED CELL DISTRIBUTION WIDTH 12.9 % (11.5-14.5)
[2021-11-17 06:55] LABS: ALANINE AMINOTRANSFERASE 119 U/L (12-78); ALKALINE PHOSPHATASE 101 U/L (46-116); ANION GAP 7 mmol/L (8-16); ASPARTATE AMINOTRANSFERASE 37 U/L (15-37); BILIRUBIN,TOTAL 0.4 mg/dL (0.1-1.0); C-REACTIVE PROTEIN QUANT 1.21 mg/dL (0.00-0.30); CARBON DIOXIDE 28 mmol/L (22-29); CHLORIDE 99 mmol/L (98-107); GLOMERULAR FILTR. RATE CALC > 60 mL/min (>60); GLUCOSE,RANDOM 96 mg/dL (70-110); POTASSIUM 3.9 mmol/L (3.5-5.1); SODIUM SERUM 134 mmol/L (136-145); TOTAL PROTEIN, SERUM 7.9 g/dL (6.4-8.2); UREA NITROGEN, BLOOD 8 mg/dL (7-18)
[2021-11-17] MEDS: DOCUSATE SODIUM 100 MG CAPSULE PO SCH ×2 (09:00→20:26)
[2021-11-17] MEDS: COLLAGENASE 250 UNITS/GM 30 GM OINTMENT TP SCH (09:00)
[2021-11-17] MEDS: MULTIVITAMINS WITH MINERALS, THERAPEUTIC TABLET PO SCH (09:11)
[2021-11-17] MEDS: FAMOTIDINE 20 MG TABLET PO SCH (09:11)
[2021-11-17 09:32] VITALS: BP 120/75
[2021-11-17] MEDS: OxyCODONE HCL/ACETAMINOPHEN 5-325 MG TABLET PO PRN ×3 (11:12→20:25)
[2021-11-17 15:20] VITALS: BP 120/85
[2021-11-17 20:00] VITALS: BP 137/77
[2021-11-17] MEDS: MELATONIN 3 MG TABLET PO PRN (20:25)
[2021-11-18 04:05] VITALS: BP 131/89
[2021-11-18] MEDS: CefTAZidime PENTAHYDRATE 2 GM in DEXTROSE 5%-WATER 50 ML IV SCH ×3 (04:44→20:16)
[2021-11-18] MEDS: OxyCODONE HCL/ACETAMINOPHEN 5-325 MG TABLET PO PRN ×3 (05:03→16:40)
[2021-11-18 08:02] VITALS: BP 133/93
[2021-11-18] MEDS: MULTIVITAMINS WITH MINERALS, THERAPEUTIC TABLET PO SCH (08:16)
[2021-11-18] MEDS: FAMOTIDINE 20 MG TABLET PO SCH (08:16)
[2021-11-18] MEDS: DOCUSATE SODIUM 100 MG CAPSULE PO SCH ×2 (08:16→20:16)
[2021-11-18] MEDS ORDERED: SODIUM CHLORIDE 0.9% IRRIG BTL 1,000 ML IRRIG ONE (10:51)
[2021-11-18] MEDS: ACETIC ACID 0.25% 1000 ML IRRIGATION SOLUTION IRRIG SCH (11:09)
[2021-11-18] MEDS: COLLAGENASE 250 UNITS/GM 30 GM OINTMENT TP SCH (11:10)
[2021-11-18 16:05] VITALS: BP 120/93
[2021-11-18] MEDS ORDERED: SODIUM CHLORIDE 0.9% 500 ML IV ONE (16:34)
[2021-11-18 19:51] VITALS: BP 131/84
[2021-11-18] MEDS: MORPHINE SULFATE 2 MG/ML SYRINGE IVP PRN (20:17)
[2021-11-18] MEDS: MELATONIN 3 MG TABLET PO PRN (22:49)
[2021-11-19 04:39] VITALS: BP 125/74
[2021-11-19] MEDS: MORPHINE SULFATE 2 MG/ML SYRINGE IVP PRN ×3 (04:58→21:44)
[2021-11-19] MEDS: CefTAZidime PENTAHYDRATE 2 GM in DEXTROSE 5%-WATER 50 ML IV SCH ×3 (05:11→20:36)
[2021-11-19 07:25] VITALS: BP 124/75
[2021-11-19] MEDS: MULTIVITAMINS WITH MINERALS, THERAPEUTIC TABLET PO SCH (09:31)
[2021-11-19] MEDS: FAMOTIDINE 20 MG TABLET PO SCH (09:31)
[2021-11-19] MEDS: DOCUSATE SODIUM 100 MG CAPSULE PO SCH ×2 (09:31→20:36)
[2021-11-19] MEDS: ACETIC ACID 0.25% 1000 ML IRRIGATION SOLUTION IRRIG SCH (10:30)
[2021-11-19] MEDS: COLLAGENASE 250 UNITS/GM 30 GM OINTMENT TP SCH (10:30)
[2021-11-19 19:33] VITALS: BP 131/68
[2021-11-20 02:29] VITALS: BP 135/87
[2021-11-20] MEDS: MORPHINE SULFATE 2 MG/ML SYRINGE IVP PRN ×2 (02:29→08:41)
[2021-11-20 04:03] VITALS: BP 129/59
[2021-11-20] MEDS: CefTAZidime PENTAHYDRATE 2 GM in DEXTROSE 5%-WATER 50 ML IV SCH ×3 (04:31→20:35)
[2021-11-20 07:30] VITALS: BP 140/79
[2021-11-20] MEDS: FAMOTIDINE 20 MG TABLET PO SCH (08:41)
[2021-11-20] MEDS: MULTIVITAMINS WITH MINERALS, THERAPEUTIC TABLET PO SCH (08:41)
[2021-11-20] MEDS: DOCUSATE SODIUM 100 MG CAPSULE PO SCH ×2 (08:56→20:34)
[2021-11-20] MEDS: ACETIC ACID 0.25% 1000 ML IRRIGATION SOLUTION IRRIG SCH (10:19)
[2021-11-20] MEDS: COLLAGENASE 250 UNITS/GM 30 GM OINTMENT TP SCH (10:20)
[2021-11-20] MEDS ORDERED: SODIUM CHLORIDE 0.9% 250 ML IV ONE (13:06)
[2021-11-20 15:47] VITALS: BP 126/77
[2021-11-20] MEDS ORDERED: SODIUM CHLORIDE 0.9% 0 ML IV ONE (19:50)
[2021-11-20 20:01] VITALS: BP 137/88
[2021-11-21 04:18] VITALS: BP 125/78
[2021-11-21] MEDS: MORPHINE SULFATE 2 MG/ML SYRINGE IVP PRN ×2 (04:18→09:41)
[2021-11-21] MEDS: CefTAZidime PENTAHYDRATE 2 GM in DEXTROSE 5%-WATER 50 ML IV SCH ×3 (04:18→21:47)
[2021-11-21 06:06] LABS: BASOPHILS % (AUTO) 0.9 % (0.0-2.0); EOSINOPHILS % (AUTO) 3.7 % (1.0-6.0); HEMATOCRIT 43.6 % (41-53); HEMOGLOBIN 14.8 g/dL (13.5-17.5); LYMPHOCYTES % (AUTO) 36.2 % (22.0-44.0); MEAN CORPUSCULAR HEMOGLOBIN 28.7 pg (26.0-34.0); MEAN CORPUSCULAR VOLUME 85 fL (80-100); MONOCYTES # (AUTO) 0.6 K/uL (0.1-1.0); MONOCYTES % (AUTO) 10.7 % (2.0-9.0); NEUTROPHILS # (AUTO) 2.7 K/uL (1.8-7.7); NEUTROPHILS % (AUTO) 48.5 % (40.0-70.0); PLATELET COUNT (AUTO) 430 K/uL (150-450); RED BLOOD CELL COUNT(AUTO) 5.15 MIL/uL (4.50-5.90); RED CELL DISTRIBUTION WIDTH 12.8 % (11.5-14.5)
[2021-11-21 06:21] LABS: ALANINE AMINOTRANSFERASE 61 U/L (12-78); ALKALINE PHOSPHATASE 95 U/L (46-116); ANION GAP 9 mmol/L (8-16); ASPARTATE AMINOTRANSFERASE 23 U/L (15-37); BILIRUBIN,TOTAL 0.3 mg/dL (0.1-1.0); C-REACTIVE PROTEIN QUANT 0.89 mg/dL (0.00-0.30); CALCIUM, TOTAL 8.8 mg/dL (8.8-10.5); CARBON DIOXIDE 26 mmol/L (22-29); CHLORIDE 101 mmol/L (98-107); CREATININE 0.61 mg/dL (0.60-1.30); GLOMERULAR FILTR. RATE CALC > 60 mL/min (>60); GLUCOSE,RANDOM 108 mg/dL (70-110); POTASSIUM 3.7 mmol/L (3.5-5.1); SODIUM SERUM 136 mmol/L (136-145); TOTAL PROTEIN, SERUM 7.7 g/dL (6.4-8.2); UREA NITROGEN, BLOOD 9 mg/dL (7-18)
[2021-11-21 08:56] VITALS: BP 118/74
[2021-11-21] MEDS: DOCUSATE SODIUM 100 MG CAPSULE PO SCH ×2 (09:00→21:00)
[2021-11-21] MEDS: FAMOTIDINE 20 MG TABLET PO SCH (09:41)
[2021-11-21] MEDS: MULTIVITAMINS WITH MINERALS, THERAPEUTIC TABLET PO SCH (09:43)
[2021-11-21] MEDS: ACETIC ACID 0.25% 1000 ML IRRIGATION SOLUTION IRRIG SCH (14:10)
[2021-11-21] MEDS: COLLAGENASE 250 UNITS/GM 30 GM OINTMENT TP SCH (14:10)
[2021-11-21 16:45] VITALS: BP 121/73
[2021-11-21] MEDS: ACETAMINOPHEN 325 MG TABLET PO PRN (19:01)
[2021-11-21 19:52] VITALS: BP 129/75
[2021-11-21] MEDS: LACTOBACILLUS ACIDOPHILUS/BULGARICUS GRANULES PACKET PO SCH (21:47)
[2021-11-22] MEDS: CefTAZidime PENTAHYDRATE 2 GM in DEXTROSE 5%-WATER 50 ML IV SCH ×3 (04:30→20:08)
[2021-11-22 04:31] VITALS: BP 116/70
[2021-11-22] MEDS: ACETAMINOPHEN 325 MG TABLET PO PRN ×2 (04:35→09:53)
[2021-11-22 07:35] VITALS: BP 123/71
[2021-11-22] MEDS: DOCUSATE SODIUM 100 MG CAPSULE PO SCH ×2 (09:00→20:08)
[2021-11-22] MEDS: LACTOBACILLUS ACIDOPHILUS/BULGARICUS GRANULES PACKET PO SCH ×2 (09:52→20:03)
[2021-11-22] MEDS: MULTIVITAMINS WITH MINERALS, THERAPEUTIC TABLET PO SCH (09:52)
[2021-11-22] MEDS: FAMOTIDINE 20 MG TABLET PO SCH (09:52)
[2021-11-22] MEDS: ACETIC ACID 0.25% 1000 ML IRRIGATION SOLUTION IRRIG SCH (09:54)
[2021-11-22] MEDS: COLLAGENASE 250 UNITS/GM 30 GM OINTMENT TP SCH (09:55)
[2021-11-22] MEDS: OxyCODONE HCL/ACETAMINOPHEN 5-325 MG TABLET PO PRN ×2 (10:56→20:02)
[2021-11-22 15:25] VITALS: BP 129/77
[2021-11-22 19:34] VITALS: BP 139/80
[2021-11-22] MEDS: MELATONIN 3 MG TABLET PO PRN (20:02)
[2021-11-23 04:23] VITALS: BP 118/82
[2021-11-23] MEDS: CefTAZidime PENTAHYDRATE 2 GM in DEXTROSE 5%-WATER 50 ML IV SCH ×3 (04:24→20:04)
[2021-11-23] MEDS: OxyCODONE HCL/ACETAMINOPHEN 5-325 MG TABLET PO PRN ×3 (04:24→18:09)
[2021-11-23 07:59] VITALS: BP 135/79
[2021-11-23] MEDS: DOCUSATE SODIUM 100 MG CAPSULE PO SCH ×2 (08:12→20:04)
[2021-11-23] MEDS: LACTOBACILLUS ACIDOPHILUS/BULGARICUS GRANULES PACKET PO SCH ×2 (08:12→20:04)
[2021-11-23] MEDS: MULTIVITAMINS WITH MINERALS, THERAPEUTIC TABLET PO SCH (08:12)
[2021-11-23] MEDS: FAMOTIDINE 20 MG TABLET PO SCH (08:12)
[2021-11-23] MEDS: COLLAGENASE 250 UNITS/GM 30 GM OINTMENT TP SCH (08:13)
[2021-11-23] MEDS: ACETIC ACID 0.25% 1000 ML IRRIGATION SOLUTION IRRIG SCH (08:14)
[2021-11-23] MEDS ORDERED: SODIUM CHLORIDE 0.9% 500 ML IV ONE (08:29)
[2021-11-23 19:51] VITALS: BP 137/76
[2021-11-23] MEDS: ACETAMINOPHEN 325 MG TABLET PO PRN (20:04)
[2021-11-23] MEDS: MELATONIN 3 MG TABLET PO PRN (20:04)
[2021-11-24] MEDS: CefTAZidime PENTAHYDRATE 2 GM in DEXTROSE 5%-WATER 50 ML IV SCH ×3 (04:09→20:31)
[2021-11-24] MEDS ORDERED: RINGERS SOLUTION,LACTATED 1,000 ML IV ONE ×2 (05:00→05:25)
[2021-11-24] MEDS: OXYGEN THERAPY IH SCH (08:00)
[2021-11-24 08:34] VITALS: BP 130/84
[2021-11-24] MEDS: DOCUSATE SODIUM 100 MG CAPSULE PO SCH ×2 (09:00→20:31)
[2021-11-24] MEDS: MULTIVITAMINS WITH MINERALS, THERAPEUTIC TABLET PO SCH (09:43)
[2021-11-24] MEDS: FAMOTIDINE 20 MG TABLET PO SCH (09:43)
[2021-11-24] MEDS: ACETIC ACID 0.25% 1000 ML IRRIGATION SOLUTION IRRIG SCH (09:43)
[2021-11-24] MEDS: LACTOBACILLUS ACIDOPHILUS/BULGARICUS GRANULES PACKET PO SCH ×2 (09:43→20:31)
[2021-11-24] MEDS: COLLAGENASE 250 UNITS/GM 30 GM OINTMENT TP SCH (09:46)
[2021-11-24] MEDS ORDERED: LIDOCAINE/PF 2% 5 ML VIAL IM ONE (12:00)
[2021-11-24] MEDS ORDERED: ONDANSETRON HCL 4 MG/2 ML VIAL IVP ONE (12:00)
[2021-11-24] MEDS ORDERED: PROPOFOL 1% 20 ML VIAL IVP ONE (12:00)
[2021-11-24] MEDS ORDERED: MIDAZOLAM HCL 2 MG/2 ML VIAL IVP ONE (15:00)
[2021-11-24] MEDS ORDERED: KETAMINE HCL 50 MG/ML 10 ML VIAL IVP ONE (15:00)
[2021-11-24] MEDS ORDERED: FentaNYL CITRATE PF 100 MCG/2 ML VIAL IVP ONE (15:00)
[2021-11-24 15:02] VITALS: BP 124/82
[2021-11-24 19:27] VITALS: BP 125/71
[2021-11-24] MEDS: OxyCODONE HCL/ACETAMINOPHEN 5-325 MG TABLET PO PRN (21:52)
[2021-11-24] MEDS: MELATONIN 3 MG TABLET PO PRN (21:52)
[2021-11-25] MEDS: ACETAMINOPHEN 325 MG TABLET PO PRN (03:10)
[2021-11-25] MEDS ORDERED: SODIUM CHLORIDE 0.9% 500 ML IV ONE (04:22)
[2021-11-25] MEDS: CefTAZidime PENTAHYDRATE 2 GM in DEXTROSE 5%-WATER 50 ML IV SCH ×3 (04:25→21:20)
[2021-11-25 05:42] VITALS: BP 125/83
[2021-11-25 07:49] VITALS: BP 112/77
[2021-11-25] MEDS: DOCUSATE SODIUM 100 MG CAPSULE PO SCH ×2 (08:44→21:20)
[2021-11-25] MEDS: MULTIVITAMINS WITH MINERALS, THERAPEUTIC TABLET PO SCH (08:44)
[2021-11-25] MEDS: LACTOBACILLUS ACIDOPHILUS/BULGARICUS GRANULES PACKET PO SCH ×2 (08:44→21:20)
[2021-11-25] MEDS: FAMOTIDINE 20 MG TABLET PO SCH (08:44)
[2021-11-25] MEDS: OxyCODONE HCL/ACETAMINOPHEN 5-325 MG TABLET PO PRN ×2 (08:46→15:54)
[2021-11-25] MEDS: COLLAGENASE 250 UNITS/GM 30 GM OINTMENT TP SCH (08:46)
[2021-11-25] MEDS: ACETIC ACID 0.25% 1000 ML IRRIGATION SOLUTION IRRIG SCH (08:46)
[2021-11-25] MEDS: OXYGEN THERAPY IH SCH ×2 (08:47→20:00)
[2021-11-25 15:47] VITALS: BP 117/70
[2021-11-25 19:18] VITALS: BP 132/90
[2021-11-25] MEDS: MELATONIN 3 MG TABLET PO PRN (21:20)
[2021-11-26 03:41] VITALS: BP 118/73
[2021-11-26] MEDS: CefTAZidime PENTAHYDRATE 2 GM in DEXTROSE 5%-WATER 50 ML IV SCH ×3 (05:26→22:02)
[2021-11-26] MEDS: OXYGEN THERAPY IH SCH ×2 (08:00→21:27)
[2021-11-26 08:32] VITALS: BP 123/73
[2021-11-26] MEDS: DOCUSATE SODIUM 100 MG CAPSULE PO SCH ×2 (08:37→22:02)
[2021-11-26] MEDS: LACTOBACILLUS ACIDOPHILUS/BULGARICUS GRANULES PACKET PO SCH ×2 (08:37→22:02)
[2021-11-26] MEDS: MULTIVITAMINS WITH MINERALS, THERAPEUTIC TABLET PO SCH (08:38)
[2021-11-26] MEDS: FAMOTIDINE 20 MG TABLET PO SCH (08:38)
[2021-11-26] MEDS: OxyCODONE HCL/ACETAMINOPHEN 5-325 MG TABLET PO PRN ×3 (08:38→22:02)
[2021-11-26] MEDS: ACETIC ACID 0.25% 1000 ML IRRIGATION SOLUTION IRRIG SCH (13:07)
[2021-11-26] MEDS: COLLAGENASE 250 UNITS/GM 30 GM OINTMENT TP SCH (13:08)
[2021-11-26 16:29] VITALS: BP 123/72
[2021-11-26 20:29] VITALS: BP 113/72
[2021-11-26] MEDS: MELATONIN 3 MG TABLET PO PRN (22:02)
[2021-11-27] MEDS ORDERED: SODIUM CHLORIDE 0.9% 500 ML IV ONE (02:40)
[2021-11-27 03:10] VITALS: BP 115/62
[2021-11-27] MEDS: OxyCODONE HCL/ACETAMINOPHEN 5-325 MG TABLET PO PRN ×3 (03:14→17:58)
[2021-11-27] MEDS: CefTAZidime PENTAHYDRATE 2 GM in DEXTROSE 5%-WATER 50 ML IV SCH ×3 (04:21→21:09)
[2021-11-27] MEDS: OXYGEN THERAPY IH SCH ×2 (08:00→20:00)
[2021-11-27 08:20] LABS: BASOPHILS % (AUTO) 1.1 % (0.0-2.0); EOSINOPHILS % (AUTO) 6.5 % (1.0-6.0); HEMATOCRIT 41.5 % (41-53); HEMOGLOBIN 14.6 g/dL (13.5-17.5); LYMPHOCYTES # (AUTO) 1.8 K/uL (1.0-4.8); LYMPHOCYTES % (AUTO) 37.5 % (22.0-44.0); MEAN CORPUSCULAR HEMOGLOBIN 29.1 pg (26.0-34.0); MEAN CORPUSCULAR HGB CONC 35.1 G/dL (31.0-37.0); MEAN CORPUSCULAR VOLUME 83 fL (80-100); MONOCYTES # (AUTO) 0.5 K/uL (0.1-1.0); MONOCYTES % (AUTO) 10.5 % (2.0-9.0); NEUTROPHILS # (AUTO) 2.2 K/uL (1.8-7.7); NEUTROPHILS % (AUTO) 44.4 % (40.0-70.0); PLATELET COUNT (AUTO) 310 K/uL (150-450); RED BLOOD CELL COUNT(AUTO) 5.01 MIL/uL (4.50-5.90); RED CELL DISTRIBUTION WIDTH 12.8 % (11.5-14.5)
[2021-11-27] MEDS: MULTIVITAMINS WITH MINERALS, THERAPEUTIC TABLET PO SCH (08:28)
[2021-11-27] MEDS: FAMOTIDINE 20 MG TABLET PO SCH (08:28)
[2021-11-27] MEDS: LACTOBACILLUS ACIDOPHILUS/BULGARICUS GRANULES PACKET PO SCH ×2 (08:28→22:16)
[2021-11-27] MEDS: DOCUSATE SODIUM 100 MG CAPSULE PO SCH ×2 (08:28→21:08)
[2021-11-27] MEDS: COLLAGENASE 250 UNITS/GM 30 GM OINTMENT TP SCH (08:29)
[2021-11-27] MEDS: ACETIC ACID 0.25% 1000 ML IRRIGATION SOLUTION IRRIG SCH (08:29)
[2021-11-27 08:34] LABS: ANION GAP 9 mmol/L (8-16); CALCIUM, TOTAL 9.4 mg/dL (8.8-10.5); CARBON DIOXIDE 27 mmol/L (22-29); CHLORIDE 100 mmol/L (98-107); CREATININE 0.59 mg/dL (0.60-1.30); GLUCOSE,RANDOM 86 mg/dL (70-110); POTASSIUM 3.7 mmol/L (3.5-5.1); SODIUM SERUM 136 mmol/L (136-145); UREA NITROGEN, BLOOD 7 mg/dL (7-18)
[2021-11-27 08:35] LABS: GLOMERULAR FILTR. RATE CALC > 60 mL/min (>60)
[2021-11-27 08:40] VITALS: BP 113/72
[2021-11-27 15:40] VITALS: BP 118/73
[2021-11-27 20:04] VITALS: BP 121/63
[2021-11-28 05:00] VITALS: BP 118/72
[2021-11-28] MEDS: CefTAZidime PENTAHYDRATE 2 GM in DEXTROSE 5%-WATER 50 ML IV SCH ×3 (05:29→21:04)
[2021-11-28 07:27] VITALS: BP 124/74
[2021-11-28] MEDS: OXYGEN THERAPY IH SCH ×2 (08:00→20:00)
[2021-11-28] MEDS: LACTOBACILLUS ACIDOPHILUS/BULGARICUS GRANULES PACKET PO SCH ×2 (08:46→21:04)
[2021-11-28] MEDS: MULTIVITAMINS WITH MINERALS, THERAPEUTIC TABLET PO SCH (08:46)
[2021-11-28] MEDS: DOCUSATE SODIUM 100 MG CAPSULE PO SCH ×2 (08:46→21:00)
[2021-11-28] MEDS: FAMOTIDINE 20 MG TABLET PO SCH (08:46)
[2021-11-28] MEDS: ACETIC ACID 0.25% 1000 ML IRRIGATION SOLUTION IRRIG SCH (08:47)
[2021-11-28] MEDS: COLLAGENASE 250 UNITS/GM 30 GM OINTMENT TP SCH (08:48)
[2021-11-28] MEDS: OxyCODONE HCL/ACETAMINOPHEN 5-325 MG TABLET PO PRN ×2 (10:56→21:06)
[2021-11-28 15:05] VITALS: BP 128/78
[2021-11-28 19:15] VITALS: BP 118/70
[2021-11-28] MEDS: MELATONIN 3 MG TABLET PO PRN (21:06)
[2021-11-29] MEDS: CefTAZidime PENTAHYDRATE 2 GM in DEXTROSE 5%-WATER 50 ML IV SCH ×3 (04:39→21:24)
[2021-11-29 05:01] VITALS: BP 93/64
[2021-11-29] MEDS ORDERED: SODIUM CHLORIDE 0.9% 500 ML IV ONE (06:11)
[2021-11-29 07:18] VITALS: BP 120/72
[2021-11-29] MEDS: OXYGEN THERAPY IH SCH ×2 (08:00→20:00)
[2021-11-29] MEDS: FAMOTIDINE 20 MG TABLET PO SCH (09:07)
[2021-11-29] MEDS: MULTIVITAMINS WITH MINERALS, THERAPEUTIC TABLET PO SCH (09:08)
[2021-11-29] MEDS: LACTOBACILLUS ACIDOPHILUS/BULGARICUS GRANULES PACKET PO SCH ×2 (09:08→21:26)
[2021-11-29] MEDS: DOCUSATE SODIUM 100 MG CAPSULE PO SCH ×2 (09:08→21:00)
[2021-11-29] MEDS: OxyCODONE HCL/ACETAMINOPHEN 5-325 MG TABLET PO PRN ×3 (09:13→21:24)
[2021-11-29 15:33] VITALS: BP 141/77
[2021-11-29] MEDS: COLLAGENASE 250 UNITS/GM 30 GM OINTMENT TP SCH (16:08)
[2021-11-29] MEDS: ACETIC ACID 0.25% 1000 ML IRRIGATION SOLUTION IRRIG SCH (16:08)
[2021-11-29 19:43] VITALS: BP 110/77
[2021-11-29] MEDS: MELATONIN 3 MG TABLET PO PRN (21:24)
[2021-11-30] MEDS: CefTAZidime PENTAHYDRATE 2 GM in DEXTROSE 5%-WATER 50 ML IV SCH ×3 (04:25→20:56)
[2021-11-30 04:34] VITALS: BP 103/68
[2021-11-30 07:45] VITALS: BP 98/73
[2021-11-30] MEDS: OXYGEN THERAPY IH SCH ×2 (08:00→20:00)
[2021-11-30] MEDS: FAMOTIDINE 20 MG TABLET PO SCH (08:20)
[2021-11-30] MEDS: LACTOBACILLUS ACIDOPHILUS/BULGARICUS GRANULES PACKET PO SCH ×2 (08:20→20:57)
[2021-11-30] MEDS: COLLAGENASE 250 UNITS/GM 30 GM OINTMENT TP SCH (08:20)
[2021-11-30] MEDS: DOCUSATE SODIUM 100 MG CAPSULE PO SCH ×3 (08:21→20:55)
[2021-11-30] MEDS: MULTIVITAMINS WITH MINERALS, THERAPEUTIC TABLET PO SCH (08:21)
[2021-11-30] MEDS: ACETIC ACID 0.25% 1000 ML IRRIGATION SOLUTION IRRIG SCH (08:23)
[2021-11-30 15:29] VITALS: BP 130/71
[2021-11-30] MEDS ORDERED: SODIUM CHLORIDE 0.9% 500 ML IV ONE (18:45)
[2021-11-30 19:30] VITALS: BP 116/72
[2021-11-30] MEDS: OxyCODONE HCL/ACETAMINOPHEN 5-325 MG TABLET PO PRN (20:56)
[2021-12-01 04:34] VITALS: BP 112/78
[2021-12-01] MEDS: CefTAZidime PENTAHYDRATE 2 GM in DEXTROSE 5%-WATER 50 ML IV SCH ×3 (05:36→20:45)
[2021-12-01 07:32] VITALS: BP 128/72
[2021-12-01] MEDS: MULTIVITAMINS WITH MINERALS, THERAPEUTIC TABLET PO SCH (07:58)
[2021-12-01] MEDS: DOCUSATE SODIUM 100 MG CAPSULE PO SCH ×2 (07:58→20:44)
[2021-12-01] MEDS: FAMOTIDINE 20 MG TABLET PO SCH (07:58)
[2021-12-01] MEDS: LACTOBACILLUS ACIDOPHILUS/BULGARICUS GRANULES PACKET PO SCH ×2 (07:59→20:44)
[2021-12-01] MEDS: COLLAGENASE 250 UNITS/GM 30 GM OINTMENT TP SCH (07:59)
[2021-12-01] MEDS: ACETIC ACID 0.25% 1000 ML IRRIGATION SOLUTION IRRIG SCH (07:59)
[2021-12-01] MEDS: OXYGEN THERAPY IH SCH (08:06)
[2021-12-01 15:05] VITALS: BP 124/76
[2021-12-01 19:35] VITALS: BP 119/69
[2021-12-01] MEDS: OxyCODONE HCL/ACETAMINOPHEN 5-325 MG TABLET PO PRN (20:52)
[2021-12-02 04:35] VITALS: BP 120/73
[2021-12-02] MEDS: CefTAZidime PENTAHYDRATE 2 GM in DEXTROSE 5%-WATER 50 ML IV SCH ×3 (05:26→20:09)
[2021-12-02] MEDS: OXYGEN THERAPY IH SCH ×2 (07:39→07:40)
[2021-12-02 07:56] VITALS: BP 120/69
[2021-12-02] MEDS: COLLAGENASE 250 UNITS/GM 30 GM OINTMENT TP SCH (08:55)
[2021-12-02] MEDS: ACETIC ACID 0.25% 1000 ML IRRIGATION SOLUTION IRRIG SCH (08:55)
[2021-12-02] MEDS: DOCUSATE SODIUM 100 MG CAPSULE PO SCH ×2 (08:55→20:09)
[2021-12-02] MEDS: FAMOTIDINE 20 MG TABLET PO SCH (08:55)
[2021-12-02] MEDS: MULTIVITAMINS WITH MINERALS, THERAPEUTIC TABLET PO SCH (08:55)
[2021-12-02] MEDS: LACTOBACILLUS ACIDOPHILUS/BULGARICUS GRANULES PACKET PO SCH ×2 (08:57→20:08)
[2021-12-02 16:09] VITALS: BP 118/74
[2021-12-02] MEDS: OxyCODONE HCL/ACETAMINOPHEN 5-325 MG TABLET PO PRN (16:18)
[2021-12-02 19:21] VITALS: BP 129/86
[2021-12-03] MEDS: OxyCODONE HCL/ACETAMINOPHEN 5-325 MG TABLET PO PRN ×2 (01:12→20:53)
[2021-12-03] MEDS: CefTAZidime PENTAHYDRATE 2 GM in DEXTROSE 5%-WATER 50 ML IV SCH ×3 (04:59→20:45)
[2021-12-03 05:05] VITALS: BP 121/79
[2021-12-03 07:30] VITALS: BP 119/76
[2021-12-03] MEDS: OXYGEN THERAPY IH SCH ×2 (08:00→20:00)
[2021-12-03] MEDS: FAMOTIDINE 20 MG TABLET PO SCH (08:04)
[2021-12-03] MEDS: LACTOBACILLUS ACIDOPHILUS/BULGARICUS GRANULES PACKET PO SCH ×2 (08:04→20:45)
[2021-12-03] MEDS: MULTIVITAMINS WITH MINERALS, THERAPEUTIC TABLET PO SCH (08:04)
[2021-12-03] MEDS: DOCUSATE SODIUM 100 MG CAPSULE PO SCH ×2 (08:05→20:45)
[2021-12-03] MEDS: COLLAGENASE 250 UNITS/GM 30 GM OINTMENT TP SCH (08:05)
[2021-12-03] MEDS: ACETIC ACID 0.25% 1000 ML IRRIGATION SOLUTION IRRIG SCH (08:05)
[2021-12-03 16:12] VITALS: BP 120/73
[2021-12-03 19:58] VITALS: BP 124/69
[2021-12-04 04:22] VITALS: BP 96/69
[2021-12-04] MEDS: CefTAZidime PENTAHYDRATE 2 GM in DEXTROSE 5%-WATER 50 ML IV SCH ×3 (04:22→20:24)
[2021-12-04 07:46] VITALS: BP 123/72
[2021-12-04] MEDS: OxyCODONE HCL/ACETAMINOPHEN 5-325 MG TABLET PO PRN ×3 (07:56→23:01)
[2021-12-04] MEDS: FAMOTIDINE 20 MG TABLET PO SCH (08:00)
[2021-12-04] MEDS: DOCUSATE SODIUM 100 MG CAPSULE PO SCH (08:00)
[2021-12-04] MEDS: MULTIVITAMINS WITH MINERALS, THERAPEUTIC TABLET PO SCH (08:00)
[2021-12-04] MEDS: ACETIC ACID 0.25% 1000 ML IRRIGATION SOLUTION IRRIG SCH (08:00)
[2021-12-04] MEDS: LACTOBACILLUS ACIDOPHILUS/BULGARICUS GRANULES PACKET PO SCH ×2 (08:00→20:24)
[2021-12-04] MEDS: COLLAGENASE 250 UNITS/GM 30 GM OINTMENT TP SCH (08:01)
[2021-12-04 16:01] VITALS: BP 121/68
[2021-12-04 19:16] VITALS: BP 131/83
[2021-12-05 04:07] VITALS: BP 131/69
[2021-12-05] MEDS: CefTAZidime PENTAHYDRATE 2 GM in DEXTROSE 5%-WATER 50 ML IV SCH (04:25)
[2021-12-05 07:26] LABS: BASOPHILS % (AUTO) 0.7 % (0.0-2.0); EOSINOPHILS % (AUTO) 6.8 % (1.0-6.0); HEMATOCRIT 41.1 % (41-53); HEMOGLOBIN 14.4 g/dL (13.5-17.5); LYMPHOCYTES # (AUTO) 1.8 K/uL (1.0-4.8); LYMPHOCYTES % (AUTO) 55.1 % (22.0-44.0); MEAN CORPUSCULAR HEMOGLOBIN 28.7 pg (26.0-34.0); MEAN CORPUSCULAR HGB CONC 34.9 G/dL (31.0-37.0); MEAN CORPUSCULAR VOLUME 82 fL (80-100); MONOCYTES # (AUTO) 0.6 K/uL (0.1-1.0); MONOCYTES % (AUTO) 18.4 % (2.0-9.0); NEUTROPHILS # (AUTO) 0.6 K/uL (1.8-7.7); PLATELET COUNT (AUTO) 242 K/uL (150-450); RED BLOOD CELL COUNT(AUTO) 5.01 MIL/uL (4.50-5.90); RED CELL DISTRIBUTION WIDTH 12.9 % (11.5-14.5)
[2021-12-05 07:35] LABS: ALANINE AMINOTRANSFERASE 39 U/L (12-78); ALKALINE PHOSPHATASE 91 U/L (46-116); ANION GAP 9 mmol/L (8-16); ASPARTATE AMINOTRANSFERASE 18 U/L (15-37); BILIRUBIN,TOTAL 0.3 mg/dL (0.1-1.0); C-REACTIVE PROTEIN QUANT 0.82 mg/dL (0.00-0.30); CALCIUM, TOTAL 9.3 mg/dL (8.8-10.5); CARBON DIOXIDE 27 mmol/L (22-29); CHLORIDE 100 mmol/L (98-107); CREATININE 0.61 mg/dL (0.60-1.30); GLOMERULAR FILTR. RATE CALC > 60 mL/min (>60); GLUCOSE,RANDOM 91 mg/dL (70-110); POTASSIUM 3.8 mmol/L (3.5-5.1); SODIUM SERUM 136 mmol/L (136-145); TOTAL PROTEIN, SERUM 7.5 g/dL (6.4-8.2); UREA NITROGEN, BLOOD 8 mg/dL (7-18)
[2021-12-05 07:58] VITALS: BP 119/73
[2021-12-05] MEDS: LACTOBACILLUS ACIDOPHILUS/BULGARICUS GRANULES PACKET PO SCH ×2 (09:00→20:05)
[2021-12-05] MEDS: MULTIVITAMINS WITH MINERALS, THERAPEUTIC TABLET PO SCH (09:57)
[2021-12-05] MEDS: OxyCODONE HCL/ACETAMINOPHEN 5-325 MG TABLET PO PRN ×2 (09:59→20:05)
[2021-12-05] MEDS: ACETIC ACID 0.25% 1000 ML IRRIGATION SOLUTION IRRIG SCH (12:50)
[2021-12-05] MEDS: PIPERACILLIN SODIUM/TAZOBACTAM 4.5 GM in DEXTROSE 5%-WATER 100 ML IV SCH ×2 (12:50→18:13)
[2021-12-05] MEDS: COLLAGENASE 250 UNITS/GM 30 GM OINTMENT TP SCH (12:52)
[2021-12-05] MEDS ORDERED: SODIUM CHLORIDE 0.9% 500 ML IV ONE (13:22)
[2021-12-05 15:24] VITALS: BP 127/64
[2021-12-05 20:26] VITALS: BP 130/69
[2021-12-06] MEDS: PIPERACILLIN SODIUM/TAZOBACTAM 4.5 GM in DEXTROSE 5%-WATER 100 ML IV SCH ×5 (00:18→23:14)
[2021-12-06] MEDS: MELATONIN 3 MG TABLET PO PRN ×2 (00:22→23:14)
[2021-12-06 03:08] VITALS: BP 142/51
[2021-12-06 06:27] LABS: BASOPHILS % (AUTO) 0.9 % (0.0-2.0); EOSINOPHILS % (AUTO) 7.2 % (1.0-6.0); HEMATOCRIT 41.6 % (41-53); HEMOGLOBIN 14.5 g/dL (13.5-17.5); LYMPHOCYTES # (AUTO) 2.5 K/uL (1.0-4.8); LYMPHOCYTES % (AUTO) 60.2 % (22.0-44.0); MEAN CORPUSCULAR HEMOGLOBIN 28.9 pg (26.0-34.0); MEAN CORPUSCULAR VOLUME 83 fL (80-100); MONOCYTES # (AUTO) 0.7 K/uL (0.1-1.0); MONOCYTES % (AUTO) 17.5 % (2.0-9.0); NEUTROPHILS # (AUTO) 0.6 K/uL (1.8-7.7); NEUTROPHILS % (AUTO) 14.2 % (40.0-70.0); PLATELET COUNT (AUTO) 255 K/uL (150-450); RED BLOOD CELL COUNT(AUTO) 5.03 MIL/uL (4.50-5.90); RED CELL DISTRIBUTION WIDTH 13.1 % (11.5-14.5)
[2021-12-06 07:32] VITALS: BP 119/76
[2021-12-06] MEDS: LACTOBACILLUS ACIDOPHILUS/BULGARICUS GRANULES PACKET PO SCH ×2 (09:00→20:32)
[2021-12-06] MEDS: MULTIVITAMINS WITH MINERALS, THERAPEUTIC TABLET PO SCH (09:39)
[2021-12-06] MEDS: OxyCODONE HCL/ACETAMINOPHEN 5-325 MG TABLET PO PRN ×2 (13:02→22:35)
[2021-12-06] MEDS: ACETIC ACID 0.25% 1000 ML IRRIGATION SOLUTION IRRIG SCH (14:25)
[2021-12-06] MEDS: COLLAGENASE 250 UNITS/GM 30 GM OINTMENT TP SCH (14:30)
[2021-12-06 15:36] VITALS: BP 122/64
[2021-12-06 19:14] VITALS: BP 129/72
[2021-12-06 19:18] LABS: EOSINOPHILS % (AUTO) 5.8 % (1.0-6.0); HEMATOCRIT 40.2 % (41-53); HEMOGLOBIN 14.1 g/dL (13.5-17.5); LYMPHOCYTES # (AUTO) 2.8 K/uL (1.0-4.8); MEAN CORPUSCULAR HEMOGLOBIN 28.8 pg (26.0-34.0); MEAN CORPUSCULAR VOLUME 82 fL (80-100); MONOCYTES # (AUTO) 0.6 K/uL (0.1-1.0); MONOCYTES % (AUTO) 13.2 % (2.0-9.0); NEUTROPHILS # (AUTO) 0.8 K/uL (1.8-7.7); NEUTROPHILS % (AUTO) 17.7 % (40.0-70.0); PLATELET COUNT (AUTO) 272 K/uL (150-450); RED BLOOD CELL COUNT(AUTO) 4.89 MIL/uL (4.50-5.90); RED CELL DISTRIBUTION WIDTH 13.1 % (11.5-14.5)
[2021-12-06 19:33] LABS: LYMPHOCYTES % (AUTO) 62.3 % (22.0-44.0)
[2021-12-06 20:20] LABS: ERYTHROCYTE SEDIMENTATION RATE 9 MM/HR (0-15)
[2021-12-07 05:23] VITALS: BP 110/65
[2021-12-07] MEDS: PIPERACILLIN SODIUM/TAZOBACTAM 4.5 GM in DEXTROSE 5%-WATER 100 ML IV SCH ×4 (05:59→23:13)
[2021-12-07 06:28] LABS: BASOPHILS % (AUTO) 1.1 % (0.0-2.0); EOSINOPHILS % (AUTO) 7.5 % (1.0-6.0); HEMATOCRIT 41.6 % (41-53); HEMOGLOBIN 14.6 g/dL (13.5-17.5); LYMPHOCYTES # (AUTO) 2.8 K/uL (1.0-4.8); LYMPHOCYTES % (AUTO) 64.4 % (22.0-44.0); MEAN CORPUSCULAR HEMOGLOBIN 28.8 pg (26.0-34.0); MEAN CORPUSCULAR HGB CONC 35.1 G/dL (31.0-37.0); MEAN CORPUSCULAR VOLUME 82 fL (80-100); MONOCYTES # (AUTO) 0.5 K/uL (0.1-1.0); MONOCYTES % (AUTO) 11.9 % (2.0-9.0); NEUTROPHILS # (AUTO) 0.7 K/uL (1.8-7.7); NEUTROPHILS % (AUTO) 15.1 % (40.0-70.0); PLATELET COUNT (AUTO) 249 K/uL (150-450); RED BLOOD CELL COUNT(AUTO) 5.07 MIL/uL (4.50-5.90)
[2021-12-07 07:10] VITALS: BP 114/68
[2021-12-07] MEDS: ACETIC ACID 0.25% 1000 ML IRRIGATION SOLUTION IRRIG SCH (09:00)
[2021-12-07] MEDS: COLLAGENASE 250 UNITS/GM 30 GM OINTMENT TP SCH (09:00)
[2021-12-07] MEDS: MULTIVITAMINS WITH MINERALS, THERAPEUTIC TABLET PO SCH (09:43)
[2021-12-07] MEDS: LACTOBACILLUS ACIDOPHILUS/BULGARICUS GRANULES PACKET PO SCH ×2 (09:43→20:32)
[2021-12-07] MEDS: OxyCODONE HCL/ACETAMINOPHEN 5-325 MG TABLET PO PRN ×3 (10:55→23:12)
[2021-12-07 11:04] LABS: COVID AG,FIA SOURCE NASOPHARYNGEAL
[2021-12-07] MEDS ORDERED: SODIUM CL IRRIG SOLN BAG 3,000 ML IRRIG ONE (11:33)
[2021-12-07] MEDS ORDERED: MUPIROCIN CALCIUM 2% 22 GM OINTMENT ONE (11:33)
[2021-12-07] MEDS ORDERED: RINGERS SOLUTION,LACTATED 1,000 ML IV ONE ×2 (11:39→11:45)
[2021-12-07] MEDS ORDERED: CHLORHEXIDINE GLUCONATE 4% 118 ML TOPICAL LIQUID TP ONE (11:42)
[2021-12-07] MEDS ORDERED: MIDAZOLAM HCL 2 MG/2 ML VIAL IVP ONE (12:00)
[2021-12-07] MEDS ORDERED: PROPOFOL 1% 20 ML VIAL IVP ONE (12:00)
[2021-12-07] MEDS ORDERED: LIDOCAINE/PF 2% 5 ML VIAL IM ONE (12:00)
[2021-12-07] MEDS ORDERED: ONDANSETRON HCL 4 MG/2 ML VIAL IVP ONE (12:00)
[2021-12-07] MEDS ORDERED: FentaNYL CITRATE PF 100 MCG/2 ML VIAL IVP ONE (12:00)
[2021-12-07] MEDS ORDERED: BUPIVACAINE HCL/PF 0.25% 30 ML VIAL ONE (12:57)
[2021-12-07] MEDS ORDERED: HYDROmorphone 2 MG/ML VIAL IVP PRN (13:15)
[2021-12-07] MEDS ORDERED: FentaNYL CITRATE PF 100 MCG/2 ML VIAL IVP PRN (13:15)
[2021-12-07] MEDS ORDERED: SUGAMMADEX SODIUM 200 MG/2 ML VIAL IVP ONE (13:53)
[2021-12-07] MEDS ORDERED: CLINDAMYCIN PHOS 2% 40 GM VAGINAL CREAM VG ONE (14:15)
[2021-12-07] MEDS ORDERED: CLINDAMYCIN PHOS 150 MG/ML 4 ML VIAL ONE (14:15)
[2021-12-07] MEDS ORDERED: HYDROmorphone 2 MG/ML VIAL ONE (15:14)
[2021-12-07 15:37] VITALS: BP 120/88
[2021-12-07] MEDS ORDERED: SODIUM CHLORIDE 0.9% 500 ML IV ONE (16:04)
[2021-12-07 19:49] VITALS: BP 122/65
[2021-12-07] MEDS: MELATONIN 3 MG TABLET PO PRN (23:13)
[2021-12-08 03:51] VITALS: BP 108/58
[2021-12-08] MEDS: OxyCODONE HCL/ACETAMINOPHEN 5-325 MG TABLET PO PRN ×4 (05:13→23:50)
[2021-12-08] MEDS: PIPERACILLIN SODIUM/TAZOBACTAM 4.5 GM in DEXTROSE 5%-WATER 100 ML IV SCH ×4 (05:13→23:50)
[2021-12-08 07:22] LABS: EOSINOPHILS % (AUTO) 6.8 % (1.0-6.0); HEMATOCRIT 41.2 % (41-53); HEMOGLOBIN 14.4 g/dL (13.5-17.5); LYMPHOCYTES # (AUTO) 2.3 K/uL (1.0-4.8); LYMPHOCYTES % (AUTO) 50.9 % (22.0-44.0); MEAN CORPUSCULAR HEMOGLOBIN 28.8 pg (26.0-34.0); MEAN CORPUSCULAR HGB CONC 35.1 G/dL (31.0-37.0); MEAN CORPUSCULAR VOLUME 82 fL (80-100); MONOCYTES # (AUTO) 0.5 K/uL (0.1-1.0); MONOCYTES % (AUTO) 11.3 % (2.0-9.0); NEUTROPHILS # (AUTO) 1.4 K/uL (1.8-7.7); PLATELET COUNT (AUTO) 259 K/uL (150-450); RED BLOOD CELL COUNT(AUTO) 5.02 MIL/uL (4.50-5.90); RED CELL DISTRIBUTION WIDTH 12.9 % (11.5-14.5)
[2021-12-08 07:51] VITALS: BP 112/60
[2021-12-08] MEDS: OXYGEN THERAPY IH SCH ×2 (08:00→20:39)
[2021-12-08] MEDS: MULTIVITAMINS WITH MINERALS, THERAPEUTIC TABLET PO SCH (08:04)
[2021-12-08] MEDS: LACTOBACILLUS ACIDOPHILUS/BULGARICUS GRANULES PACKET PO SCH ×2 (08:04→20:36)
[2021-12-08] MEDS: ACETIC ACID 0.25% 1000 ML IRRIGATION SOLUTION IRRIG SCH (09:00)
[2021-12-08] MEDS: COLLAGENASE 250 UNITS/GM 30 GM OINTMENT TP SCH (09:00)
[2021-12-08 15:04] VITALS: BP 124/64
[2021-12-08 20:09] VITALS: BP 117/68
[2021-12-08] MEDS: MELATONIN 3 MG TABLET PO PRN (23:50)
[2021-12-09 05:34] VITALS: BP 106/62
[2021-12-09] MEDS: PIPERACILLIN SODIUM/TAZOBACTAM 4.5 GM in DEXTROSE 5%-WATER 100 ML IV SCH ×4 (05:49→23:21)
[2021-12-09 07:57] VITALS: BP 97/55
[2021-12-09] MEDS: OXYGEN THERAPY IH SCH ×2 (08:00→20:00)
[2021-12-09] MEDS: MULTIVITAMINS WITH MINERALS, THERAPEUTIC TABLET PO SCH (08:32)
[2021-12-09] MEDS: LACTOBACILLUS ACIDOPHILUS/BULGARICUS GRANULES PACKET PO SCH ×2 (08:32→20:01)
[2021-12-09] MEDS ORDERED: SODIUM CL IRRIG SOLN BOTTLE 250 ML IRRIG ONE (14:06)
[2021-12-09 16:01] VITALS: BP 129/74
[2021-12-09] MEDS: OxyCODONE HCL/ACETAMINOPHEN 5-325 MG TABLET PO PRN (16:53)
[2021-12-09 19:53] VITALS: BP 127/69
[2021-12-10] MEDS: OxyCODONE HCL/ACETAMINOPHEN 5-325 MG TABLET PO PRN ×3 (01:44→23:39)
[2021-12-10] MEDS: MELATONIN 3 MG TABLET PO PRN ×2 (01:48→23:39)
[2021-12-10 04:49] VITALS: BP 146/87
[2021-12-10] MEDS: PIPERACILLIN SODIUM/TAZOBACTAM 4.5 GM in DEXTROSE 5%-WATER 100 ML IV SCH (04:56)
[2021-12-10 05:10] LABS: BASOPHILS % (AUTO) 0.7 % (0.0-2.0); EOSINOPHILS % (AUTO) 5.3 % (1.0-6.0); HEMOGLOBIN 14.6 g/dL (13.5-17.5); LYMPHOCYTES # (AUTO) 2.8 K/uL (1.0-4.8); LYMPHOCYTES % (AUTO) 46.6 % (22.0-44.0); MEAN CORPUSCULAR HEMOGLOBIN 28.9 pg (26.0-34.0); MEAN CORPUSCULAR HGB CONC 35.5 G/dL (31.0-37.0); MEAN CORPUSCULAR VOLUME 82 fL (80-100); MONOCYTES # (AUTO) 0.6 K/uL (0.1-1.0); MONOCYTES % (AUTO) 9.4 % (2.0-9.0); NEUTROPHILS # (AUTO) 2.3 K/uL (1.8-7.7); PLATELET COUNT (AUTO) 290 K/uL (150-450); RED BLOOD CELL COUNT(AUTO) 5.03 MIL/uL (4.50-5.90)
[2021-12-10 05:22] LABS: ALANINE AMINOTRANSFERASE 37 U/L (12-78); ALKALINE PHOSPHATASE 84 U/L (46-116); ANION GAP 10 mmol/L (8-16); ASPARTATE AMINOTRANSFERASE 16 U/L (15-37); BILIRUBIN,TOTAL 0.3 mg/dL (0.1-1.0); C-REACTIVE PROTEIN QUANT 0.97 mg/dL (0.00-0.30); CALCIUM, TOTAL 9.2 mg/dL (8.8-10.5); CARBON DIOXIDE 25 mmol/L (22-29); CHLORIDE 101 mmol/L (98-107); CREATININE 0.67 mg/dL (0.60-1.30); GLUCOSE,RANDOM 100 mg/dL (70-110); POTASSIUM 3.8 mmol/L (3.5-5.1); SODIUM SERUM 136 mmol/L (136-145); TOTAL PROTEIN, SERUM 7.4 g/dL (6.4-8.2); UREA NITROGEN, BLOOD 7 mg/dL (7-18)
[2021-12-10 05:23] LABS: GLOMERULAR FILTR. RATE CALC > 60 mL/min (>60)
[2021-12-10 07:26] VITALS: BP 138/84
[2021-12-10] MEDS: OXYGEN THERAPY IH SCH ×2 (08:00→20:00)
[2021-12-10] MEDS: MULTIVITAMINS WITH MINERALS, THERAPEUTIC TABLET PO SCH (08:17)
[2021-12-10] MEDS: LACTOBACILLUS ACIDOPHILUS/BULGARICUS GRANULES PACKET PO SCH ×2 (08:17→20:29)
[2021-12-10] MEDS ORDERED: *CLINICAL-BACTRIM/SEPTRA IVPB DOSING CLINICAL ONE (11:30)
[2021-12-10] MEDS: DEXTROSE IV SCH ×2 (12:09→20:29)
[2021-12-10] MEDS: SULFAMETHOX IV SCH ×2 (12:09→20:29)
[2021-12-10] MEDS: TRIMETH IV SCH ×2 (12:09→20:29)
[2021-12-10] MEDS: WATER IV SCH ×2 (12:09→20:29)
[2021-12-10] MEDS: LEVOFLOXACIN 750 MG TABLET PO SCH (12:09)
[2021-12-10 15:08] VITALS: BP 128/76
[2021-12-10 20:35] VITALS: BP 111/67
[2021-12-11] MEDS: TRIMETH IV SCH ×3 (04:08→20:47)
[2021-12-11] MEDS: WATER IV SCH ×3 (04:08→20:47)
[2021-12-11] MEDS: DEXTROSE IV SCH ×3 (04:08→20:47)
[2021-12-11] MEDS: SULFAMETHOX IV SCH ×3 (04:08→20:47)
[2021-12-11 05:28] VITALS: BP 108/64
[2021-12-11 06:12] LABS: ANION GAP 11 mmol/L (8-16); CALCIUM, TOTAL 9.1 mg/dL (8.8-10.5); CARBON DIOXIDE 24 mmol/L (22-29); CHLORIDE 98 mmol/L (98-107); CREATININE 0.78 mg/dL (0.60-1.30); GLUCOSE,RANDOM 133 mg/dL (70-110); POTASSIUM 3.5 mmol/L (3.5-5.1); SODIUM SERUM 133 mmol/L (136-145); UREA NITROGEN, BLOOD 7 mg/dL (7-18)
[2021-12-11 06:16] LABS: GLOMERULAR FILTR. RATE CALC > 60 mL/min (>60)
[2021-12-11 07:58] VITALS: BP 117/65
[2021-12-11] MEDS: OXYGEN THERAPY IH SCH ×2 (08:00→20:00)
[2021-12-11] MEDS: LACTOBACILLUS ACIDOPHILUS/BULGARICUS GRANULES PACKET PO SCH ×2 (09:07→21:24)
[2021-12-11] MEDS: MULTIVITAMINS WITH MINERALS, THERAPEUTIC TABLET PO SCH (09:07)
[2021-12-11] MEDS: LEVOFLOXACIN 750 MG TABLET PO SCH (09:07)
[2021-12-11 16:21] VITALS: BP 124/53
[2021-12-11 19:30] VITALS: BP 108/76
[2021-12-11] MEDS: MELATONIN 3 MG TABLET PO PRN (21:25)
[2021-12-12] MEDS ORDERED: SODIUM CHLORIDE 0.9% 500 ML IV ONE ×2 (04:41→20:59)
[2021-12-12] MEDS: SULFAMETHOX IV SCH ×3 (04:49→20:08)
[2021-12-12] MEDS: TRIMETH IV SCH ×3 (04:49→20:08)
[2021-12-12] MEDS: DEXTROSE IV SCH ×3 (04:49→20:08)
[2021-12-12] MEDS: WATER IV SCH ×3 (04:49→20:08)
[2021-12-12 04:53] VITALS: BP 114/66
[2021-12-12 06:52] LABS: ANION GAP 13 mmol/L (8-16); C-REACTIVE PROTEIN QUANT 0.61 mg/dL (0.00-0.30); CALCIUM, TOTAL 9.6 mg/dL (8.8-10.5); CARBON DIOXIDE 22 mmol/L (22-29); CHLORIDE 99 mmol/L (98-107); CREATININE 0.77 mg/dL (0.60-1.30); GLUCOSE,RANDOM 120 mg/dL (70-110); POTASSIUM 3.9 mmol/L (3.5-5.1); SODIUM SERUM 134 mmol/L (136-145); UREA NITROGEN, BLOOD 6 mg/dL (7-18)
[2021-12-12 07:00] LABS: GLOMERULAR FILTR. RATE CALC > 60 mL/min (>60)
[2021-12-12 07:26] VITALS: BP 120/69
[2021-12-12] MEDS: OXYGEN THERAPY IH SCH ×2 (08:00→20:07)
[2021-12-12] MEDS: LEVOFLOXACIN 750 MG TABLET PO SCH (08:11)
[2021-12-12] MEDS: MULTIVITAMINS WITH MINERALS, THERAPEUTIC TABLET PO SCH (08:11)
[2021-12-12] MEDS: LACTOBACILLUS ACIDOPHILUS/BULGARICUS GRANULES PACKET PO SCH ×2 (08:11→20:06)
[2021-12-12 16:04] VITALS: BP 122/71
[2021-12-12] MEDS: OxyCODONE HCL/ACETAMINOPHEN 5-325 MG TABLET PO PRN (18:56)
[2021-12-12 19:25] VITALS: BP 115/62
[2021-12-12] MEDS: MELATONIN 3 MG TABLET PO PRN (23:05)
[2021-12-13] MEDS: DEXTROSE IV SCH ×3 (04:43→21:28)
[2021-12-13] MEDS: WATER IV SCH ×3 (04:43→21:28)
[2021-12-13] MEDS: SULFAMETHOX IV SCH ×3 (04:43→21:28)
[2021-12-13] MEDS: TRIMETH IV SCH ×3 (04:43→21:28)
[2021-12-13 05:12] VITALS: BP 127/68
[2021-12-13 07:20] VITALS: BP 104/61
[2021-12-13] MEDS: OXYGEN THERAPY IH SCH ×2 (08:00→20:00)
[2021-12-13] MEDS: LACTOBACILLUS ACIDOPHILUS/BULGARICUS GRANULES PACKET PO SCH ×2 (08:09→21:26)
[2021-12-13] MEDS: MULTIVITAMINS WITH MINERALS, THERAPEUTIC TABLET PO SCH (08:09)
[2021-12-13] MEDS: LEVOFLOXACIN 750 MG TABLET PO SCH (08:10)
[2021-12-13] MEDS: OxyCODONE HCL/ACETAMINOPHEN 5-325 MG TABLET PO PRN ×2 (08:10→08:13)
[2021-12-13 15:09] VITALS: BP 124/74
[2021-12-13 20:28] VITALS: BP 127/69
[2021-12-13] MEDS ORDERED: FAMOTIDINE 20 MG TABLET PO ONE ×2 (22:15)
[2021-12-14 03:23] VITALS: BP 143/69
[2021-12-14] MEDS: SULFAMETHOX IV SCH ×3 (04:15→20:58)
[2021-12-14] MEDS: TRIMETH IV SCH ×3 (04:15→20:58)
[2021-12-14] MEDS: WATER IV SCH ×3 (04:15→20:58)
[2021-12-14] MEDS: DEXTROSE IV SCH ×3 (04:15→20:58)
[2021-12-14] MEDS: OxyCODONE HCL/ACETAMINOPHEN 5-325 MG TABLET PO PRN ×2 (06:13→16:08)
[2021-12-14 06:56] LABS: ANION GAP 13 mmol/L (8-16); CALCIUM, TOTAL 9.4 mg/dL (8.8-10.5); CARBON DIOXIDE 21 mmol/L (22-29); CHLORIDE 98 mmol/L (98-107); CREATININE 0.79 mg/dL (0.60-1.30); GLOMERULAR FILTR. RATE CALC > 60 mL/min (>60); GLUCOSE,RANDOM 102 mg/dL (70-110); POTASSIUM 3.9 mmol/L (3.5-5.1); SODIUM SERUM 132 mmol/L (136-145); UREA NITROGEN, BLOOD 5 mg/dL (7-18)
[2021-12-14 07:42] VITALS: BP 128/77
[2021-12-14] MEDS: OXYGEN THERAPY IH SCH ×2 (08:00→20:00)
[2021-12-14] MEDS: LEVOFLOXACIN 750 MG TABLET PO SCH (08:57)
[2021-12-14] MEDS: COLLAGENASE 250 UNITS/GM 30 GM OINTMENT TP SCH (08:57)
[2021-12-14] MEDS: MULTIVITAMINS WITH MINERALS, THERAPEUTIC TABLET PO SCH (08:57)
[2021-12-14] MEDS: LACTOBACILLUS ACIDOPHILUS/BULGARICUS GRANULES PACKET PO SCH ×2 (08:57→20:58)
[2021-12-14 15:24] VITALS: BP 119/70
[2021-12-14] MEDS ORDERED: SODIUM CL IRRIG SOLN BOTTLE 250 ML IRRIG ONE (15:40)
[2021-12-14 19:40] VITALS: BP 102/66
[2021-12-14] MEDS: MELATONIN 3 MG TABLET PO PRN (20:58)
[2021-12-15] MEDS: FAMOTIDINE 20 MG TABLET PO PRN (00:04)
[2021-12-15] MEDS: DEXTROSE IV SCH ×3 (03:54→20:15)
[2021-12-15] MEDS: SULFAMETHOX IV SCH ×3 (03:54→20:15)
[2021-12-15] MEDS: WATER IV SCH ×3 (03:54→20:15)
[2021-12-15] MEDS: TRIMETH IV SCH ×3 (03:54→20:15)
[2021-12-15 04:05] VITALS: BP 115/70
[2021-12-15 05:11] LABS: ANION GAP 15 mmol/L (8-16); CALCIUM, TOTAL 9.3 mg/dL (8.8-10.5); CARBON DIOXIDE 22 mmol/L (22-29); CHLORIDE 98 mmol/L (98-107); CREATININE 0.83 mg/dL (0.60-1.30); GLUCOSE,RANDOM 122 mg/dL (70-110); POTASSIUM 4.1 mmol/L (3.5-5.1); SODIUM SERUM 135 mmol/L (136-145); UREA NITROGEN, BLOOD 5 mg/dL (7-18)
[2021-12-15 05:12] LABS: GLOMERULAR FILTR. RATE CALC > 60 mL/min (>60)
[2021-12-15 08:00] VITALS: BP 121/66
[2021-12-15] MEDS: OXYGEN THERAPY IH SCH ×2 (08:00→20:00)
[2021-12-15] MEDS: LACTOBACILLUS ACIDOPHILUS/BULGARICUS GRANULES PACKET PO SCH ×2 (10:53→20:15)
[2021-12-15] MEDS: COLLAGENASE 250 UNITS/GM 30 GM OINTMENT TP SCH (10:54)
[2021-12-15] MEDS: LEVOFLOXACIN 750 MG TABLET PO SCH (10:54)
[2021-12-15] MEDS: MULTIVITAMINS WITH MINERALS, THERAPEUTIC TABLET PO SCH (10:54)
[2021-12-15 15:32] VITALS: BP 120/71
[2021-12-15 20:06] VITALS: BP 141/61
[2021-12-15 23:53] VITALS: BP 154/99
[2021-12-16] MEDS: MELATONIN 3 MG TABLET PO PRN (00:03)
[2021-12-16] MEDS: OxyCODONE HCL/ACETAMINOPHEN 5-325 MG TABLET PO PRN (00:03)
[2021-12-16] MEDS: FAMOTIDINE 20 MG TABLET PO PRN ×2 (00:05→18:38)
[2021-12-16] MEDS: ONDANSETRON HCL 4 MG/2 ML VIAL IVP PRN (02:38)
[2021-12-16] MEDS ORDERED: SODIUM CHLORIDE 0.9% 500 ML IV ONE (04:02)
[2021-12-16] MEDS: WATER IV SCH ×3 (04:09→20:17)
[2021-12-16] MEDS: TRIMETH IV SCH ×3 (04:09→20:17)
[2021-12-16] MEDS: DEXTROSE IV SCH ×3 (04:09→20:17)
[2021-12-16] MEDS: SULFAMETHOX IV SCH ×3 (04:09→20:17)
[2021-12-16 07:51] VITALS: BP 111/62
[2021-12-16] MEDS: OXYGEN THERAPY IH SCH ×2 (08:00→20:00)
[2021-12-16 08:01] LABS: ANION GAP 11 mmol/L (8-16); CALCIUM, TOTAL 8.9 mg/dL (8.8-10.5); CARBON DIOXIDE 22 mmol/L (22-29); CHLORIDE 101 mmol/L (98-107); CREATININE 0.78 mg/dL (0.60-1.30); GLUCOSE,RANDOM 75 mg/dL (70-110); SODIUM SERUM 134 mmol/L (136-145); UREA NITROGEN, BLOOD 5 mg/dL (7-18)
[2021-12-16 08:02] LABS: GLOMERULAR FILTR. RATE CALC > 60 mL/min (>60)
[2021-12-16] MEDS: LACTOBACILLUS ACIDOPHILUS/BULGARICUS GRANULES PACKET PO SCH ×2 (08:56→21:00)
[2021-12-16] MEDS: MULTIVITAMINS WITH MINERALS, THERAPEUTIC TABLET PO SCH (08:56)
[2021-12-16] MEDS: COLLAGENASE 250 UNITS/GM 30 GM OINTMENT TP SCH (09:00)
[2021-12-16 16:25] VITALS: BP 128/74
[2021-12-16 20:28] VITALS: BP 135/86
[2021-12-17 04:15] VITALS: BP 108/66
[2021-12-17] MEDS: WATER IV SCH ×3 (04:53→21:02)
[2021-12-17] MEDS: TRIMETH IV SCH ×3 (04:53→21:02)
[2021-12-17] MEDS: DEXTROSE IV SCH ×3 (04:53→21:02)
[2021-12-17] MEDS: SULFAMETHOX IV SCH ×3 (04:53→21:02)
[2021-12-17] MEDS: OXYGEN THERAPY IH SCH (07:40)
[2021-12-17 07:46] VITALS: BP 105/69
[2021-12-17] MEDS: MULTIVITAMINS WITH MINERALS, THERAPEUTIC TABLET PO SCH (08:00)
[2021-12-17] MEDS: LACTOBACILLUS ACIDOPHILUS/BULGARICUS GRANULES PACKET PO SCH ×2 (08:00→21:04)
[2021-12-17] MEDS: OxyCODONE HCL/ACETAMINOPHEN 5-325 MG TABLET PO PRN (08:00)
[2021-12-17] MEDS: COLLAGENASE 250 UNITS/GM 30 GM OINTMENT TP SCH (08:08)
[2021-12-17] MEDS ORDERED: MAG HYDROX/AL HYDROX/SIMETH ES 30 ML SUSPENSION UDCUP PO PRN (08:45)
[2021-12-17 11:23] LABS: BASOPHILS % (AUTO) 0.5 % (0.0-2.0); EOSINOPHILS % (AUTO) 2.2 % (1.0-6.0); HEMATOCRIT 40.9 % (41-53); LYMPHOCYTES % (AUTO) 17.4 % (22.0-44.0); MEAN CORPUSCULAR HEMOGLOBIN 28.3 pg (26.0-34.0); MEAN CORPUSCULAR HGB CONC 34.3 G/dL (31.0-37.0); MEAN CORPUSCULAR VOLUME 83 fL (80-100); MONOCYTES # (AUTO) 0.7 K/uL (0.1-1.0); MONOCYTES % (AUTO) 11.6 % (2.0-9.0); NEUTROPHILS # (AUTO) 3.8 K/uL (1.8-7.7); NEUTROPHILS % (AUTO) 68.3 % (40.0-70.0); PLATELET COUNT (AUTO) 260 K/uL (150-450); RED BLOOD CELL COUNT(AUTO) 4.94 MIL/uL (4.50-5.90); RED CELL DISTRIBUTION WIDTH 13.3 % (11.5-14.5)
[2021-12-17] MEDS: PANTOPRAZOLE SODIUM 40 MG DR TABLET PO SCH (11:28)
[2021-12-17 11:43] LABS: ALANINE AMINOTRANSFERASE 43 U/L (12-78); ALKALINE PHOSPHATASE 105 U/L (46-116); ANION GAP 12 mmol/L (8-16); ASPARTATE AMINOTRANSFERASE 23 U/L (15-37); BILIRUBIN,TOTAL 0.2 mg/dL (0.1-1.0); C-REACTIVE PROTEIN QUANT 1.26 mg/dL (0.00-0.30); CALCIUM, TOTAL 8.7 mg/dL (8.8-10.5); CARBON DIOXIDE 24 mmol/L (22-29); CHLORIDE 97 mmol/L (98-107); CREATININE 0.79 mg/dL (0.60-1.30); GLOMERULAR FILTR. RATE CALC > 60 mL/min (>60); GLUCOSE,RANDOM 93 mg/dL (70-110); POTASSIUM 3.8 mmol/L (3.5-5.1); SODIUM SERUM 133 mmol/L (136-145); TOTAL PROTEIN, SERUM 7.2 g/dL (6.4-8.2); UREA NITROGEN, BLOOD 6 mg/dL (7-18)
[2021-12-17] MEDS: FLUCONAZOLE 200 MG TABLET PO SCH (12:18)
[2021-12-17 16:10] VITALS: BP 119/72
[2021-12-17 19:45] VITALS: BP 124/67
[2021-12-17] MEDS: ONDANSETRON HCL 4 MG/2 ML VIAL IVP PRN (21:06)
[2021-12-17] MEDS ORDERED: SODIUM CHLORIDE 0.9% 250 ML IV ONE (23:28)
[2021-12-18] MEDS: TRIMETH IV SCH ×2 (04:24→12:29)
[2021-12-18] MEDS: SULFAMETHOX IV SCH ×2 (04:24→12:29)
[2021-12-18] MEDS: WATER IV SCH ×2 (04:24→12:29)
[2021-12-18] MEDS: DEXTROSE IV SCH ×2 (04:24→12:29)
[2021-12-18 08:04] VITALS: BP 103/56
[2021-12-18] MEDS: PANTOPRAZOLE SODIUM 40 MG DR TABLET PO SCH (08:27)
[2021-12-18] MEDS: FLUCONAZOLE 200 MG TABLET PO SCH (08:28)
[2021-12-18] MEDS: MULTIVITAMINS WITH MINERALS, THERAPEUTIC TABLET PO SCH (08:28)
[2021-12-18] MEDS: LACTOBACILLUS ACIDOPHILUS/BULGARICUS GRANULES PACKET PO SCH ×2 (08:28→20:48)
[2021-12-18] MEDS: COLLAGENASE 250 UNITS/GM 30 GM OINTMENT TP SCH (08:33)
[2021-12-18 15:48] VITALS: BP 128/87
[2021-12-18] MEDS ORDERED: SODIUM CHLORIDE 0.9% 250 ML IV ONE (16:36)
[2021-12-18 19:49] VITALS: BP 123/67
[2021-12-18] MEDS: MELATONIN 3 MG TABLET PO PRN (23:50)
[2021-12-18] MEDS: OxyCODONE HCL/ACETAMINOPHEN 5-325 MG TABLET PO PRN (23:51)
[2021-12-19 04:13] VITALS: BP 120/61
[2021-12-19 07:07] LABS: ANION GAP 13 mmol/L (8-16); CALCIUM, TOTAL 9.1 mg/dL (8.8-10.5); CARBON DIOXIDE 22 mmol/L (22-29); CHLORIDE 98 mmol/L (98-107); CREATININE 0.79 mg/dL (0.60-1.30); GLUCOSE,RANDOM 86 mg/dL (70-110); POTASSIUM 4.1 mmol/L (3.5-5.1); SODIUM SERUM 133 mmol/L (136-145); UREA NITROGEN, BLOOD 6 mg/dL (7-18)
[2021-12-19 07:08] LABS: GLOMERULAR FILTR. RATE CALC > 60 mL/min (>60)
[2021-12-19 07:17] VITALS: BP 122/62
[2021-12-19] MEDS: MULTIVITAMINS WITH MINERALS, THERAPEUTIC TABLET PO SCH (08:40)
[2021-12-19] MEDS: PANTOPRAZOLE SODIUM 40 MG DR TABLET PO SCH (08:40)
[2021-12-19] MEDS: FLUCONAZOLE 200 MG TABLET PO SCH (08:41)
[2021-12-19] MEDS: LACTOBACILLUS ACIDOPHILUS/BULGARICUS GRANULES PACKET PO SCH ×2 (09:33→20:57)
[2021-12-19] MEDS: COLLAGENASE 250 UNITS/GM 30 GM OINTMENT TP SCH (10:10)
[2021-12-19] MEDS ORDERED: DiphenhydrAMINE HCL 50 MG/ML VIAL IVP ONE (10:15)
[2021-12-19] MEDS ORDERED: PredniSONE 20 MG TABLET PO ONE (10:15)
[2021-12-19] MEDS: LEVOFLOXACIN 750 MG TABLET PO SCH (14:00)
[2021-12-19] MEDS ORDERED: *NON-FORMULARY MED [ENTER DRUG, DOSE, FREQ IN COMMENTS] CLINICAL ONE (14:15)
[2021-12-19 15:05] VITALS: BP 118/68
[2021-12-19] MEDS: CETIRIZINE HCL 10 MG TABLET PO SCH (17:03)
[2021-12-19 19:35] VITALS: BP 140/70
[2021-12-20 04:00] VITALS: BP 112/52
[2021-12-20] MEDS ORDERED: DiphenhydrAMINE HCL 50 MG/ML VIAL IVP ONE (05:45)
[2021-12-20] MEDS ORDERED: FAMOTIDINE 10 MG/ML 2 ML VIAL IVP ONE (05:45)
[2021-12-20] MEDS ORDERED: SODIUM CHLORIDE 0.9% 500 ML IV ONE (05:57)
[2021-12-20 06:54] LABS: ALANINE AMINOTRANSFERASE 56 U/L (12-78); ALKALINE PHOSPHATASE 110 U/L (46-116); ANION GAP 10 mmol/L (8-16); ASPARTATE AMINOTRANSFERASE 29 U/L (15-37); BILIRUBIN,TOTAL 0.3 mg/dL (0.1-1.0); CALCIUM, TOTAL 9.5 mg/dL (8.8-10.5); CARBON DIOXIDE 26 mmol/L (22-29); CHLORIDE 99 mmol/L (98-107); CREATININE 0.65 mg/dL (0.60-1.30); GLUCOSE,RANDOM 106 mg/dL (70-110); POTASSIUM 3.8 mmol/L (3.5-5.1); SODIUM SERUM 135 mmol/L (136-145); TOTAL PROTEIN, SERUM 7.7 g/dL (6.4-8.2); UREA NITROGEN, BLOOD 8 mg/dL (7-18)
[2021-12-20 06:56] LABS: GLOMERULAR FILTR. RATE CALC > 60 mL/min (>60)
[2021-12-20 07:17] LABS: BASOPHILS % (AUTO) 0.7 % (0.0-2.0); EOSINOPHILS % (AUTO) 2.2 % (1.0-6.0); HEMATOCRIT 43.2 % (41-53); HEMOGLOBIN 14.8 g/dL (13.5-17.5); LYMPHOCYTES # (AUTO) 1.4 K/uL (1.0-4.8); LYMPHOCYTES % (AUTO) 41.7 % (22.0-44.0); MEAN CORPUSCULAR HEMOGLOBIN 28.4 pg (26.0-34.0); MEAN CORPUSCULAR HGB CONC 34.2 G/dL (31.0-37.0); MEAN CORPUSCULAR VOLUME 83 fL (80-100); MONOCYTES # (AUTO) 0.4 K/uL (0.1-1.0); MONOCYTES % (AUTO) 12.8 % (2.0-9.0); NEUTROPHILS # (AUTO) 1.5 K/uL (1.8-7.7); NEUTROPHILS % (AUTO) 42.6 % (40.0-70.0); PLATELET COUNT (AUTO) 243 K/uL (150-450); RED CELL DISTRIBUTION WIDTH 13.6 % (11.5-14.5)
[2021-12-20 07:24] VITALS: BP 119/59
[2021-12-20] MEDS: LEVOFLOXACIN 750 MG TABLET PO SCH (08:53)
[2021-12-20] MEDS: LACTOBACILLUS ACIDOPHILUS/BULGARICUS GRANULES PACKET PO SCH ×2 (08:53→20:19)
[2021-12-20] MEDS: PANTOPRAZOLE SODIUM 40 MG DR TABLET PO SCH (08:53)
[2021-12-20] MEDS: CETIRIZINE HCL 10 MG TABLET PO SCH (08:53)
[2021-12-20] MEDS: MULTIVITAMINS WITH MINERALS, THERAPEUTIC TABLET PO SCH (08:53)
[2021-12-20] MEDS ORDERED: CASPOFUNGIN ACETATE 70 MG in SODIUM CHLORIDE 0.9% 250 ML IV ONE (09:00)
[2021-12-20] MEDS: COLLAGENASE 250 UNITS/GM 30 GM OINTMENT TP SCH (09:13)
[2021-12-20] MEDS: CEFIDEROCOL SULFATE TOSYLATE IV SCH ×2 (12:54→20:19)
[2021-12-20] MEDS: SODIUM CHLORIDE 0.9% IV SCH ×2 (12:54→20:19)
[2021-12-20 15:16] VITALS: BP 127/65
[2021-12-20] MEDS: PredniSONE 20 MG TABLET PO SCH (17:32)
[2021-12-20] MEDS ORDERED: PredniSONE 20 MG TABLET PO SCH (20:00)
[2021-12-20 20:15] VITALS: BP 119/64
[2021-12-21] MEDS: CEFIDEROCOL SULFATE TOSYLATE IV SCH ×3 (04:43→21:21)
[2021-12-21] MEDS: SODIUM CHLORIDE 0.9% IV SCH ×3 (04:43→21:21)
[2021-12-21 05:05] VITALS: BP 94/57
[2021-12-21 08:18] VITALS: BP 107/56
[2021-12-21] MEDS ORDERED: PredniSONE 20 MG TABLET PO SCH (09:00)
[2021-12-21] MEDS: MULTIVITAMINS WITH MINERALS, THERAPEUTIC TABLET PO SCH (09:37)
[2021-12-21] MEDS: CETIRIZINE HCL 10 MG TABLET PO SCH (09:37)
[2021-12-21] MEDS: LEVOFLOXACIN 750 MG TABLET PO SCH (09:37)
[2021-12-21] MEDS: LACTOBACILLUS ACIDOPHILUS/BULGARICUS GRANULES PACKET PO SCH ×2 (09:37→21:21)
[2021-12-21] MEDS: PredniSONE 20 MG TABLET PO SCH (09:37)
[2021-12-21] MEDS: COLLAGENASE 250 UNITS/GM 30 GM OINTMENT TP SCH (09:38)
[2021-12-21] MEDS: CASPOFUNGIN ACETATE 50 MG in SODIUM CHLORIDE 0.9% 250 ML IV SCH (11:44)
[2021-12-21 15:24] VITALS: BP 101/62
[2021-12-21 19:24] VITALS: BP 116/62
[2021-12-22 04:41] VITALS: BP 108/57
[2021-12-22] MEDS: SODIUM CHLORIDE 0.9% IV SCH ×3 (05:21→21:24)
[2021-12-22] MEDS: CEFIDEROCOL SULFATE TOSYLATE IV SCH ×3 (05:21→21:24)
[2021-12-22 06:29] LABS: BASOPHILS % (AUTO) 0.4 % (0.0-2.0); HEMATOCRIT 39.4 % (41-53); HEMOGLOBIN 13.5 g/dL (13.5-17.5); LYMPHOCYTES # (AUTO) 2.9 K/uL (1.0-4.8); LYMPHOCYTES % (AUTO) 54.6 % (22.0-44.0); MEAN CORPUSCULAR HEMOGLOBIN 28.2 pg (26.0-34.0); MEAN CORPUSCULAR HGB CONC 34.3 G/dL (31.0-37.0); MEAN CORPUSCULAR VOLUME 82 fL (80-100); MONOCYTES # (AUTO) 0.5 K/uL (0.1-1.0); NEUTROPHILS # (AUTO) 1.8 K/uL (1.8-7.7); PLATELET COUNT (AUTO) 247 K/uL (150-450); RED BLOOD CELL COUNT(AUTO) 4.79 MIL/uL (4.50-5.90); RED CELL DISTRIBUTION WIDTH 13.1 % (11.5-14.5)
[2021-12-22 06:55] LABS: ALANINE AMINOTRANSFERASE 54 U/L (12-78); ALBUMIN 3.7 g/dL (3.4-5.0); ALKALINE PHOSPHATASE 97 U/L (46-116); ANION GAP 10 mmol/L (8-16); ASPARTATE AMINOTRANSFERASE 27 U/L (15-37); BILIRUBIN,TOTAL 0.2 mg/dL (0.1-1.0); C-REACTIVE PROTEIN QUANT 0.56 mg/dL (0.00-0.30); CALCIUM, TOTAL 8.8 mg/dL (8.8-10.5); CARBON DIOXIDE 27 mmol/L (22-29); CHLORIDE 103 mmol/L (98-107); GLUCOSE,RANDOM 89 mg/dL (70-110); POTASSIUM 3.5 mmol/L (3.5-5.1); SODIUM SERUM 140 mmol/L (136-145); TOTAL PROTEIN, SERUM 6.8 g/dL (6.4-8.2); UREA NITROGEN, BLOOD 6 mg/dL (7-18)
[2021-12-22 06:57] LABS: GLOMERULAR FILTR. RATE CALC > 60 mL/min (>60)
[2021-12-22 08:21] VITALS: BP 119/54
[2021-12-22] MEDS: CASPOFUNGIN ACETATE 50 MG in SODIUM CHLORIDE 0.9% 250 ML IV SCH (08:38)
[2021-12-22] MEDS: LACTOBACILLUS ACIDOPHILUS/BULGARICUS GRANULES PACKET PO SCH ×2 (08:38→21:23)
[2021-12-22] MEDS: LEVOFLOXACIN 750 MG TABLET PO SCH (08:43)
[2021-12-22] MEDS: MULTIVITAMINS WITH MINERALS, THERAPEUTIC TABLET PO SCH (08:43)
[2021-12-22] MEDS: CETIRIZINE HCL 10 MG TABLET PO SCH (08:43)
[2021-12-22] MEDS: PredniSONE 20 MG TABLET PO SCH (08:43)
[2021-12-22] MEDS: COLLAGENASE 250 UNITS/GM 30 GM OINTMENT TP SCH (09:00)
[2021-12-22 15:41] VITALS: BP 126/64
[2021-12-22 19:45] VITALS: BP 128/73
[2021-12-23 04:00] VITALS: BP 95/60
[2021-12-23] MEDS: SODIUM CHLORIDE 0.9% IV SCH ×3 (04:35→21:25)
[2021-12-23] MEDS: CEFIDEROCOL SULFATE TOSYLATE IV SCH ×3 (04:35→21:25)
[2021-12-23 08:07] VITALS: BP 112/65
[2021-12-23] MEDS: CETIRIZINE HCL 10 MG TABLET PO SCH (08:47)
[2021-12-23] MEDS: LACTOBACILLUS ACIDOPHILUS/BULGARICUS GRANULES PACKET PO SCH ×2 (08:47→21:25)
[2021-12-23] MEDS: MULTIVITAMINS WITH MINERALS, THERAPEUTIC TABLET PO SCH (08:47)
[2021-12-23] MEDS: LEVOFLOXACIN 750 MG TABLET PO SCH (08:47)
[2021-12-23] MEDS: COLLAGENASE 250 UNITS/GM 30 GM OINTMENT TP SCH (09:00)
[2021-12-23] MEDS: CASPOFUNGIN ACETATE 50 MG in SODIUM CHLORIDE 0.9% 250 ML IV SCH (11:14)
[2021-12-23 15:28] VITALS: BP 133/73
[2021-12-23 19:58] VITALS: BP 111/58
[2021-12-24] MEDS ORDERED: SODIUM CHLORIDE 0.9% 500 ML IV ONE (03:05)
[2021-12-24] MEDS: CEFIDEROCOL SULFATE TOSYLATE IV SCH ×3 (04:23→20:48)
[2021-12-24] MEDS: SODIUM CHLORIDE 0.9% IV SCH ×3 (04:23→20:48)
[2021-12-24 06:46] VITALS: BP 102/54
[2021-12-24 07:28] VITALS: BP 116/70
[2021-12-24 07:54] LABS: BASOPHILS % (AUTO) 0.9 % (0.0-2.0); EOSINOPHILS % (AUTO) 4.3 % (1.0-6.0); HEMOGLOBIN 14.4 g/dL (13.5-17.5); LYMPHOCYTES # (AUTO) 2.9 K/uL (1.0-4.8); LYMPHOCYTES % (AUTO) 49.4 % (22.0-44.0); MEAN CORPUSCULAR HEMOGLOBIN 28.5 pg (26.0-34.0); MEAN CORPUSCULAR HGB CONC 34.3 G/dL (31.0-37.0); MEAN CORPUSCULAR VOLUME 83 fL (80-100); MONOCYTES # (AUTO) 0.5 K/uL (0.1-1.0); MONOCYTES % (AUTO) 8.7 % (2.0-9.0); NEUTROPHILS # (AUTO) 2.1 K/uL (1.8-7.7); NEUTROPHILS % (AUTO) 36.7 % (40.0-70.0); PLATELET COUNT (AUTO) 289 K/uL (150-450); RED BLOOD CELL COUNT(AUTO) 5.07 MIL/uL (4.50-5.90); RED CELL DISTRIBUTION WIDTH 13.3 % (11.5-14.5)
[2021-12-24 08:13] LABS: ALANINE AMINOTRANSFERASE 58 U/L (12-78); ALBUMIN 3.7 g/dL (3.4-5.0); ALKALINE PHOSPHATASE 93 U/L (46-116); ANION GAP 10 mmol/L (8-16); ASPARTATE AMINOTRANSFERASE 24 U/L (15-37); BILIRUBIN,TOTAL 0.3 mg/dL (0.1-1.0); CALCIUM, TOTAL 9.1 mg/dL (8.8-10.5); CARBON DIOXIDE 27 mmol/L (22-29); CHLORIDE 102 mmol/L (98-107); CREATININE 0.67 mg/dL (0.60-1.30); GLUCOSE,RANDOM 83 mg/dL (70-110); POTASSIUM 3.9 mmol/L (3.5-5.1); SODIUM SERUM 139 mmol/L (136-145); TOTAL PROTEIN, SERUM 6.9 g/dL (6.4-8.2); UREA NITROGEN, BLOOD 7 mg/dL (7-18)
[2021-12-24 08:18] LABS: GLOMERULAR FILTR. RATE CALC > 60 mL/min (>60)
[2021-12-24] MEDS: MULTIVITAMINS WITH MINERALS, THERAPEUTIC TABLET PO SCH (08:32)
[2021-12-24] MEDS: CASPOFUNGIN ACETATE 50 MG in SODIUM CHLORIDE 0.9% 250 ML IV SCH (08:32)
[2021-12-24] MEDS: LEVOFLOXACIN 750 MG TABLET PO SCH (08:32)
[2021-12-24] MEDS: CETIRIZINE HCL 10 MG TABLET PO SCH (08:32)
[2021-12-24] MEDS: LACTOBACILLUS ACIDOPHILUS/BULGARICUS GRANULES PACKET PO SCH ×2 (08:33→20:48)
[2021-12-24] MEDS: COLLAGENASE 250 UNITS/GM 30 GM OINTMENT TP SCH (08:39)
[2021-12-24 12:45] VITALS: BP 114/69
[2021-12-24 19:32] VITALS: BP 135/59
[2021-12-25] MEDS: CEFIDEROCOL SULFATE TOSYLATE IV SCH ×3 (04:54→20:11)
[2021-12-25] MEDS: SODIUM CHLORIDE 0.9% IV SCH ×3 (04:54→20:11)
[2021-12-25 05:04] VITALS: BP 112/68
[2021-12-25 08:31] VITALS: BP 115/67
[2021-12-25] MEDS: CASPOFUNGIN ACETATE 50 MG in SODIUM CHLORIDE 0.9% 250 ML IV SCH (08:32)
[2021-12-25] MEDS: CETIRIZINE HCL 10 MG TABLET PO SCH (08:32)
[2021-12-25] MEDS: MULTIVITAMINS WITH MINERALS, THERAPEUTIC TABLET PO SCH (08:33)
[2021-12-25] MEDS: LACTOBACILLUS ACIDOPHILUS/BULGARICUS GRANULES PACKET PO SCH ×2 (08:33→20:11)
[2021-12-25] MEDS: LEVOFLOXACIN 750 MG TABLET PO SCH (08:33)
[2021-12-25] MEDS: COLLAGENASE 250 UNITS/GM 30 GM OINTMENT TP SCH (08:51)
[2021-12-25 12:08] VITALS: BP 120/71
[2021-12-25] MEDS ORDERED: SODIUM CHLORIDE 0.9% 500 ML IV ONE (12:42)
[2021-12-25 16:02] VITALS: BP 124/65
[2021-12-25 20:27] VITALS: BP 116/64
[2021-12-26 04:44] VITALS: BP 115/67
[2021-12-26] MEDS: CEFIDEROCOL SULFATE TOSYLATE IV SCH ×3 (05:05→21:06)
[2021-12-26] MEDS: SODIUM CHLORIDE 0.9% IV SCH ×3 (05:05→21:06)
[2021-12-26 07:52] VITALS: BP 138/59
[2021-12-26] MEDS: COLLAGENASE 250 UNITS/GM 30 GM OINTMENT TP SCH (08:44)
[2021-12-26] MEDS: LEVOFLOXACIN 750 MG TABLET PO SCH (08:51)
[2021-12-26] MEDS: CASPOFUNGIN ACETATE 50 MG in SODIUM CHLORIDE 0.9% 250 ML IV SCH (08:51)
[2021-12-26] MEDS: MULTIVITAMINS WITH MINERALS, THERAPEUTIC TABLET PO SCH (08:51)
[2021-12-26] MEDS: LACTOBACILLUS ACIDOPHILUS/BULGARICUS GRANULES PACKET PO SCH ×2 (08:51→21:05)
[2021-12-26] MEDS: CETIRIZINE HCL 10 MG TABLET PO SCH (08:51)
[2021-12-26 15:17] VITALS: BP 119/62
[2021-12-26 20:03] VITALS: BP 133/68
[2021-12-27 04:00] VITALS: BP 106/55
[2021-12-27] MEDS: CEFIDEROCOL SULFATE TOSYLATE IV SCH ×3 (05:13→21:49)
[2021-12-27] MEDS: SODIUM CHLORIDE 0.9% IV SCH ×3 (05:13→21:49)
[2021-12-27] MEDS: CETIRIZINE HCL 10 MG TABLET PO SCH (08:01)
[2021-12-27] MEDS: LEVOFLOXACIN 750 MG TABLET PO SCH (08:01)
[2021-12-27] MEDS: MULTIVITAMINS WITH MINERALS, THERAPEUTIC TABLET PO SCH (08:01)
[2021-12-27] MEDS: LACTOBACILLUS ACIDOPHILUS/BULGARICUS GRANULES PACKET PO SCH ×2 (08:01→21:50)
[2021-12-27] MEDS: CASPOFUNGIN ACETATE 50 MG in SODIUM CHLORIDE 0.9% 250 ML IV SCH (08:02)
[2021-12-27 08:04] VITALS: BP 116/75
[2021-12-27] MEDS: COLLAGENASE 250 UNITS/GM 30 GM OINTMENT TP SCH (10:20)
[2021-12-27 11:23] LABS: BASOPHILS % (AUTO) 0.9 % (0.0-2.0); EOSINOPHILS % (AUTO) 3.9 % (1.0-6.0); HEMATOCRIT 40.7 % (41-53); HEMOGLOBIN 13.8 g/dL (13.5-17.5); LYMPHOCYTES # (AUTO) 1.7 K/uL (1.0-4.8); MEAN CORPUSCULAR HEMOGLOBIN 28.4 pg (26.0-34.0); MEAN CORPUSCULAR VOLUME 84 fL (80-100); MONOCYTES # (AUTO) 0.5 K/uL (0.1-1.0); MONOCYTES % (AUTO) 12.3 % (2.0-9.0); NEUTROPHILS # (AUTO) 1.8 K/uL (1.8-7.7); NEUTROPHILS % (AUTO) 42.9 % (40.0-70.0); PLATELET COUNT (AUTO) 291 K/uL (150-450); RED BLOOD CELL COUNT(AUTO) 4.87 MIL/uL (4.50-5.90); RED CELL DISTRIBUTION WIDTH 13.5 % (11.5-14.5)
[2021-12-27 12:31] LABS: ERYTHROCYTE SEDIMENTATION RATE 6 MM/HR (0-15)
[2021-12-27 12:57] LABS: ALANINE AMINOTRANSFERASE 44 U/L (12-78); ALBUMIN 3.4 g/dL (3.4-5.0); ALKALINE PHOSPHATASE 84 U/L (46-116); ANION GAP 9 mmol/L (8-16); ASPARTATE AMINOTRANSFERASE 20 U/L (15-37); BILIRUBIN,TOTAL 0.5 mg/dL (0.1-1.0); CALCIUM, TOTAL 8.7 mg/dL (8.8-10.5); CARBON DIOXIDE 26 mmol/L (22-29); CHLORIDE 102 mmol/L (98-107); CREATININE 0.56 mg/dL (0.60-1.30); GLOMERULAR FILTR. RATE CALC > 60 mL/min (>60); GLUCOSE,RANDOM 105 mg/dL (70-110); POTASSIUM 3.7 mmol/L (3.5-5.1); SODIUM SERUM 137 mmol/L (136-145); TOTAL PROTEIN, SERUM 6.7 g/dL (6.4-8.2); UREA NITROGEN, BLOOD 9 mg/dL (7-18)
[2021-12-27 15:38] VITALS: BP 123/66
[2021-12-27 19:45] VITALS: BP 114/62
[2021-12-28 05:14] VITALS: BP 107/53
[2021-12-28] MEDS: SODIUM CHLORIDE 0.9% IV SCH ×3 (06:17→21:08)
[2021-12-28] MEDS: CEFIDEROCOL SULFATE TOSYLATE IV SCH ×3 (06:17→21:08)
[2021-12-28] MEDS ORDERED: SODIUM CHLORIDE 0.9% 500 ML IV ONE (06:27)
[2021-12-28 07:55] VITALS: BP 105/61
[2021-12-28] MEDS: LACTOBACILLUS ACIDOPHILUS/BULGARICUS GRANULES PACKET PO SCH ×2 (08:03→20:59)
[2021-12-28] MEDS: LEVOFLOXACIN 750 MG TABLET PO SCH (08:03)
[2021-12-28] MEDS: MULTIVITAMINS WITH MINERALS, THERAPEUTIC TABLET PO SCH (08:03)
[2021-12-28] MEDS: CETIRIZINE HCL 10 MG TABLET PO SCH (08:03)
[2021-12-28] MEDS: COLLAGENASE 250 UNITS/GM 30 GM OINTMENT TP SCH (09:00)
[2021-12-28] MEDS: CASPOFUNGIN ACETATE 50 MG in SODIUM CHLORIDE 0.9% 250 ML IV SCH (09:25)
[2021-12-28 15:50] VITALS: BP 114/66
[2021-12-28 20:03] VITALS: BP 109/48
[2021-12-29 04:20] VITALS: BP 98/58
[2021-12-29] MEDS: SODIUM CHLORIDE 0.9% IV SCH ×3 (06:03→20:16)
[2021-12-29] MEDS: CEFIDEROCOL SULFATE TOSYLATE IV SCH ×3 (06:03→20:16)
[2021-12-29 07:24] VITALS: BP 106/56
[2021-12-29] MEDS: COLLAGENASE 250 UNITS/GM 30 GM OINTMENT TP SCH (08:54)
[2021-12-29] MEDS: LEVOFLOXACIN 750 MG TABLET PO SCH (08:54)
[2021-12-29] MEDS: CETIRIZINE HCL 10 MG TABLET PO SCH (08:54)
[2021-12-29] MEDS: MULTIVITAMINS WITH MINERALS, THERAPEUTIC TABLET PO SCH (08:54)
[2021-12-29] MEDS: LACTOBACILLUS ACIDOPHILUS/BULGARICUS GRANULES PACKET PO SCH ×2 (08:55→20:16)
[2021-12-29] MEDS ORDERED: SODIUM CHLORIDE 0.9% 500 ML IV ONE (10:56)
[2021-12-29] MEDS: CASPOFUNGIN ACETATE 50 MG in SODIUM CHLORIDE 0.9% 250 ML IV SCH (11:41)
[2021-12-29 21:24] VITALS: BP 105/65
[2021-12-30] MEDS: CEFIDEROCOL SULFATE TOSYLATE IV SCH ×3 (05:05→22:17)
[2021-12-30] MEDS: SODIUM CHLORIDE 0.9% IV SCH ×3 (05:05→22:17)
[2021-12-30 05:55] VITALS: BP 106/61
[2021-12-30 08:00] VITALS: BP 112/63
[2021-12-30] MEDS: COLLAGENASE 250 UNITS/GM 30 GM OINTMENT TP SCH (09:00)
[2021-12-30] MEDS: CASPOFUNGIN ACETATE 50 MG in SODIUM CHLORIDE 0.9% 250 ML IV SCH (09:45)
[2021-12-30] MEDS: MULTIVITAMINS WITH MINERALS, THERAPEUTIC TABLET PO SCH (09:45)
[2021-12-30] MEDS: LACTOBACILLUS ACIDOPHILUS/BULGARICUS GRANULES PACKET PO SCH ×2 (09:45→20:55)
[2021-12-30] MEDS: LEVOFLOXACIN 750 MG TABLET PO SCH (09:45)
[2021-12-30] MEDS: CETIRIZINE HCL 10 MG TABLET PO SCH (09:46)
[2021-12-30 16:39] VITALS: BP 133/71
[2021-12-30 19:45] VITALS: BP 133/68
[2021-12-31 04:10] VITALS: BP 97/59
[2021-12-31] MEDS: CEFIDEROCOL SULFATE TOSYLATE IV SCH ×3 (05:20→21:21)
[2021-12-31] MEDS: SODIUM CHLORIDE 0.9% IV SCH ×3 (05:20→21:21)
[2021-12-31 08:02] VITALS: BP 102/72
[2021-12-31] MEDS: CASPOFUNGIN ACETATE 50 MG in SODIUM CHLORIDE 0.9% 250 ML IV SCH (08:35)
[2021-12-31] MEDS: LACTOBACILLUS ACIDOPHILUS/BULGARICUS GRANULES PACKET PO SCH ×2 (08:36→20:23)
[2021-12-31] MEDS: CETIRIZINE HCL 10 MG TABLET PO SCH (08:36)
[2021-12-31] MEDS: LEVOFLOXACIN 750 MG TABLET PO SCH (08:36)
[2021-12-31] MEDS: MULTIVITAMINS WITH MINERALS, THERAPEUTIC TABLET PO SCH (08:36)
[2021-12-31] MEDS: COLLAGENASE 250 UNITS/GM 30 GM OINTMENT TP SCH (09:00)
[2021-12-31 15:41] VITALS: BP 117/73
[2021-12-31 20:27] VITALS: BP 114/69
[2022-01-01] MEDS: SODIUM CHLORIDE 0.9% IV SCH ×3 (04:31→20:52)
[2022-01-01] MEDS: CEFIDEROCOL SULFATE TOSYLATE IV SCH ×3 (04:31→20:52)
[2022-01-01 04:42] VITALS: BP 111/71
[2022-01-01 08:19] VITALS: BP 115/72
[2022-01-01] MEDS: CETIRIZINE HCL 10 MG TABLET PO SCH (08:52)
[2022-01-01] MEDS: CASPOFUNGIN ACETATE 50 MG in SODIUM CHLORIDE 0.9% 250 ML IV SCH (08:52)
[2022-01-01] MEDS: MULTIVITAMINS WITH MINERALS, THERAPEUTIC TABLET PO SCH (08:52)
[2022-01-01] MEDS: LEVOFLOXACIN 750 MG TABLET PO SCH (08:52)
[2022-01-01] MEDS: LACTOBACILLUS ACIDOPHILUS/BULGARICUS GRANULES PACKET PO SCH ×2 (08:52→20:51)
[2022-01-01] MEDS: COLLAGENASE 250 UNITS/GM 30 GM OINTMENT TP SCH (09:00)
[2022-01-01] MEDS: OxyCODONE HCL/ACETAMINOPHEN 5-325 MG TABLET PO PRN (13:34)
[2022-01-01 15:53] VITALS: BP 105/66
[2022-01-01 20:03] VITALS: BP 127/61
[2022-01-01] MEDS: MELATONIN 3 MG TABLET PO PRN (21:50)
[2022-01-02] MEDS ORDERED: SODIUM CHLORIDE 0.9% 500 ML IV ONE (01:52)
[2022-01-02 05:30] VITALS: BP 123/68
[2022-01-02] MEDS: CEFIDEROCOL SULFATE TOSYLATE IV SCH ×3 (05:31→21:16)
[2022-01-02] MEDS: SODIUM CHLORIDE 0.9% IV SCH ×3 (05:31→21:16)
[2022-01-02] MEDS: MULTIVITAMINS WITH MINERALS, THERAPEUTIC TABLET PO SCH (08:40)
[2022-01-02] MEDS: CASPOFUNGIN ACETATE 50 MG in SODIUM CHLORIDE 0.9% 250 ML IV SCH (08:41)
[2022-01-02] MEDS: COLLAGENASE 250 UNITS/GM 30 GM OINTMENT TP SCH (08:41)
[2022-01-02] MEDS: LACTOBACILLUS ACIDOPHILUS/BULGARICUS GRANULES PACKET PO SCH ×2 (08:41→21:16)
[2022-01-02] MEDS: LEVOFLOXACIN 750 MG TABLET PO SCH (08:41)
[2022-01-02] MEDS: CETIRIZINE HCL 10 MG TABLET PO SCH (08:41)
[2022-01-02 15:12] VITALS: BP 125/69
[2022-01-02 21:46] VITALS: BP 114/58
[2022-01-02] MEDS: MELATONIN 3 MG TABLET PO PRN (23:14)
[2022-01-03] MEDS: CEFIDEROCOL SULFATE TOSYLATE IV SCH ×3 (05:03→21:28)
[2022-01-03] MEDS: SODIUM CHLORIDE 0.9% IV SCH ×3 (05:03→21:28)
[2022-01-03 05:39] VITALS: BP 99/63
[2022-01-03 06:47] LABS: BASOPHILS % (AUTO) 2.7 % (0.0-2.0); HEMATOCRIT 41.5 % (41-53); HEMOGLOBIN 14.3 g/dL (13.5-17.5); LYMPHOCYTES # (AUTO) 1.8 K/uL (1.0-4.8); LYMPHOCYTES % (AUTO) 43.6 % (22.0-44.0); MEAN CORPUSCULAR HEMOGLOBIN 28.8 pg (26.0-34.0); MEAN CORPUSCULAR HGB CONC 34.6 G/dL (31.0-37.0); MEAN CORPUSCULAR VOLUME 83 fL (80-100); MONOCYTES # (AUTO) 0.6 K/uL (0.1-1.0); MONOCYTES % (AUTO) 14.8 % (2.0-9.0); NEUTROPHILS # (AUTO) 1.3 K/uL (1.8-7.7); NEUTROPHILS % (AUTO) 31.9 % (40.0-70.0); PLATELET COUNT (AUTO) 211 K/uL (150-450); RED BLOOD CELL COUNT(AUTO) 4.98 MIL/uL (4.50-5.90); RED CELL DISTRIBUTION WIDTH 13.6 % (11.5-14.5)
[2022-01-03 07:16] LABS: ALANINE AMINOTRANSFERASE 58 U/L (12-78); ALBUMIN 3.6 g/dL (3.4-5.0); ALKALINE PHOSPHATASE 81 U/L (46-116); ANION GAP 8 mmol/L (8-16); ASPARTATE AMINOTRANSFERASE 32 U/L (15-37); BILIRUBIN,TOTAL 0.5 mg/dL (0.1-1.0); C-REACTIVE PROTEIN QUANT 0.37 mg/dL (0.00-0.30); CALCIUM, TOTAL 9.1 mg/dL (8.8-10.5); CARBON DIOXIDE 26 mmol/L (22-29); CHLORIDE 103 mmol/L (98-107); CREATININE 0.62 mg/dL (0.60-1.30); GLUCOSE,RANDOM 87 mg/dL (70-110); POTASSIUM 3.7 mmol/L (3.5-5.1); SODIUM SERUM 137 mmol/L (136-145); UREA NITROGEN, BLOOD 7 mg/dL (7-18)
[2022-01-03 07:19] LABS: GLOMERULAR FILTR. RATE CALC > 60 mL/min (>60)
[2022-01-03 08:17] VITALS: BP 100/59
[2022-01-03] MEDS: CETIRIZINE HCL 10 MG TABLET PO SCH (09:22)
[2022-01-03] MEDS: CASPOFUNGIN ACETATE 50 MG in SODIUM CHLORIDE 0.9% 250 ML IV SCH (09:22)
[2022-01-03] MEDS: LACTOBACILLUS ACIDOPHILUS/BULGARICUS GRANULES PACKET PO SCH ×2 (09:22→21:27)
[2022-01-03] MEDS: COLLAGENASE 250 UNITS/GM 30 GM OINTMENT TP SCH (09:23)
[2022-01-03] MEDS: LEVOFLOXACIN 750 MG TABLET PO SCH (09:23)
[2022-01-03] MEDS: MULTIVITAMINS WITH MINERALS, THERAPEUTIC TABLET PO SCH (09:23)
[2022-01-03 16:00] VITALS: BP 109/69
[2022-01-03 19:40] VITALS: BP 138/76
[2022-01-03] MEDS: OxyCODONE HCL/ACETAMINOPHEN 5-325 MG TABLET PO PRN (21:37)
[2022-01-04] MEDS: SODIUM CHLORIDE 0.9% IV SCH ×2 (04:57→13:19)
[2022-01-04] MEDS: CEFIDEROCOL SULFATE TOSYLATE IV SCH ×2 (04:57→13:19)
[2022-01-04 05:22] VITALS: BP 99/58
[2022-01-04 08:00] VITALS: BP 96/53
[2022-01-04] MEDS: LACTOBACILLUS ACIDOPHILUS/BULGARICUS GRANULES PACKET PO SCH (08:38)
[2022-01-04] MEDS: CASPOFUNGIN ACETATE 50 MG in SODIUM CHLORIDE 0.9% 250 ML IV SCH (08:38)
[2022-01-04] MEDS: CETIRIZINE HCL 10 MG TABLET PO SCH (08:39)
[2022-01-04] MEDS: MULTIVITAMINS WITH MINERALS, THERAPEUTIC TABLET PO SCH (08:39)
[2022-01-04] MEDS: LEVOFLOXACIN 750 MG TABLET PO SCH (08:39)
[2022-01-04] MEDS: COLLAGENASE 250 UNITS/GM 30 GM OINTMENT TP SCH (08:40)
[2022-01-04] MEDS ORDERED: CASP50VI IV (14:18)
[2022-01-04] MEDS ORDERED: COLL30OI TP (14:19)
[2022-01-04] MEDS ORDERED: CETI-450 PO (14:19)
[2022-01-04] MEDS ORDERED: CEFI1VIA IV (14:20)
[2022-01-04] MEDS ORDERED: ACID1GRA PO (14:22)
[2022-01-04] MEDS ORDERED: HEPA500018 SQ (14:23)
[2022-01-04] MEDS ORDERED: LEVO750P7 IV (14:23)
[2022-01-04] MEDS ORDERED: MULT-1239 PO (14:24)
[2022-01-04] MEDS ORDERED: MAG30ORA19 PO (14:25)
[2022-01-04] MEDS ORDERED: MELA3TAB89 PO (14:25)
[2022-01-04] MEDS ORDERED: ONDA-104 PO (14:26)
[2022-01-04] MEDS ORDERED: PERCT PO (14:26)
[2022-01-04] MEDS ORDERED: HEPARIN SODIUM,PORCINE 5,000 UNITS/ML VIAL SQ SCH (16:00)
[2022-01-04 16:15] VITALS: BP 106/53
== END 2022-01-04 20:02 | DRG 314 ==
LOC: EMS 14:04 → 6S 16:42
PROVIDERS: ADMIT Internal Medicine; ATTEND Internal Medicine
PROC: 0LXN0ZZ Transfer Right Lower Leg Tendon, Open Approach (ICD-10-PCS; 2021-11-02)
PROC: 0KNS0ZZ Release Right Lower Leg Muscle, Open Approach (ICD-10-PCS; 2021-11-02)
PROC: 0KNS0ZZ Release Right Lower Leg Muscle, Open Approach (ICD-10-PCS; 2021-11-02)
PROC: 0KNS0ZZ Release Right Lower Leg Muscle, Open Approach (ICD-10-PCS; 2021-11-02)
PROC: 0SGM0JZ Fusion of Right Metatarsal-Phalangeal Joint with Synthetic Substitute, Open Approach (ICD-10-PCS; 2021-11-02)
PROC: 0J8Q0ZZ Division of Right Foot Subcutaneous Tissue and Fascia, Open Approach (ICD-10-PCS; 2021-11-02)
PROC: 0LNV0ZZ Release Right Foot Tendon, Open Approach (ICD-10-PCS; 2021-11-02)
PROC: 0SGP04Z Fusion of Right Toe Phalangeal Joint with Internal Fixation Device, Open Approach (ICD-10-PCS; 2021-11-02)
PROC: 0SGH04Z Fusion of Right Tarsal Joint with Internal Fixation Device, Open Approach (ICD-10-PCS; 2021-11-02)
PROC: 0L8N0ZZ Division of Right Lower Leg Tendon, Open Approach (ICD-10-PCS; principal; 2021-11-02 12:30)
PROC: 02HV33Z Insertion of Infusion Device into Superior Vena Cava, Percutaneous Approach (ICD-10-PCS; 2021-11-17)
PROC: 2W3SX2Z Immobilization of Right Foot using Cast (ICD-10-PCS; 2021-11-24)
PROC: 0YBM0ZZ Excision of Right Foot, Open Approach (ICD-10-PCS; 2021-12-07)
DX: M21.6X1 Other acquired deformities of right foot (principal); G82.50 Quadriplegia, unspecified; D70.9 Neutropenia, unspecified; T81.41XA Infection following a procedure, superficial incisional surgical site, initial encounter; Z16.24 Resistance to multiple antibiotics; L29.9 Pruritus, unspecified; E66.9 Obesity, unspecified; Z20.822 Contact with and (suspected) exposure to COVID-19; G89.29 Other chronic pain; Z87.820 Personal history of traumatic brain injury; Y83.8 Other surgical procedures as the cause of abnormal reaction of the patient, or of later complication, without mention of misadventure at the time of the procedure; Y92.238 Other place in hospital as the place of occurrence of the external cause; L27.0 Generalized skin eruption due to drugs and medicaments taken internally; T36.8X5A Adverse effect of other systemic antibiotics, initial encounter; Z68.32 Body mass index [BMI] 32.0-32.9, adult
CPT/HCPCS: 36245; 36569; 71045; 73700; 76937; 80048; 80053; 80202; 81003; 84145; 85025; 85610; 85651; 86140; 87040; 87070; 87081; 87106; 87186; 87205; 93005; 93971; 94761; 97164; 97167; 97530; 97535; 99285; C9290; G0238; J0131; J0637; J0690; J0713; J0878; J1100; J1170; J1200; J1650; J1885; J2250; J2270; J2405; J2543; J2704; J3010; J3370; J3490; J7030; J7040; J7050; J7060; J7120; Q9967; 36415-L1; 36415-TC; C1716; S0077; U0003; Z7610